=== PATIENT | female | born 1940 ===

== ENCOUNTER 2016-07-05 06:01 | Observation (INO) | payer MEDICARE ==
[2016-06-27 12:25] VITALS: BMI 30.4
[2016-07-05] MEDS ORDERED: Lactated Ringer's 1,000 ML IV ONE (07:20)
[2016-07-05] MEDS ORDERED: Lidocaine 1% Inj (20ml) ONE (07:27)
[2016-07-05] MEDS ORDERED: Lidocaine 2% w Epi 1:100,000 Inj IJ ONE (07:27)
[2016-07-05] MEDS ORDERED: Bupivacaine 0.5% Inj(30mL) ONE (07:27)
[2016-07-05] MEDS ORDERED: Albuterol HFA 90 mcg/actuation (8 g) ONE ×4 (07:43→07:46)
[2016-07-05] MEDS ORDERED: Propofol 10 mg/ml Inj (20 ML) ONE (07:46)
[2016-07-05] MEDS ORDERED: Midazolam 2 MG/2 ML VIAL ONE (07:48)
[2016-07-05] MEDS ORDERED: ePHEDrine 50 mg/ml Inj ONE (08:06)
[2016-07-05] MEDS ORDERED: Phenylephrine 10 mg/ml Inj ONE (08:07)
--- NOTE | 2016-07-05 08:55 | PCM.SURG1 ---
Surgeon's Initial Post Op Note - Surgeon's Notes Surgeon: Dr. Romo Hr Shared Services Consultant: Dr. Sprague PGY-1 Type of Anesthesia: General LMA Pre-Operative Diagnosis: Left Breast Mass Operative Findings: See Operative Note Post-Operative Diagnosis: Left Breast Mass Operation Performed: Left breast lumpectomy with axillary dissection Specimen/Specimens Removed: Left brest lump, with axillary content including lymphnodes Estimated Blood Loss: EBL {In ML}: 2 Blood Products Given: N/A Drains Used: [place] Date of Surgery/Procedure: 07/05/16 Time of Surgery/Procedure: 08:55
[2016-07-05] MEDS ORDERED: HYDROmorphone 0.5 mg/0.5 ml ISec IVP PRN ×2 (08:57→09:31)
[2016-07-05] MEDS ORDERED: Patient's Own Med (Metformin Er [Glucophage Xr] 750 mg) PO SCH (09:00)
[2016-07-05] MEDS ORDERED: Pantoprazole 40 mg EC Tab PO SCH (09:00)
[2016-07-05] MEDS ORDERED: Levothyroxine 112 MCG TAB PO SCH (09:00)
[2016-07-05] MEDS ORDERED: Albuterol HFA 90 mcg/actuation (8 g) IH PRN (09:00)
--- NOTE | 2016-07-05 11:32 | OP ---
PROCEDURE DATE: 07/05/2016 PREOPERATIVE DIAGNOSIS: Infiltrating ductal carcinoma of the left breast. POSTOPERATIVE DIAGNOSIS: Infiltrating ductal carcinoma of the left breast. PROCEDURE: Left lumpectomy with axillary dissection. SURGEON: Vasu Romo MD. STATIONARY ENGINEER: ____. ANESTHESIA: General LMA, Dr. Anglin. INDICATIONS: This is a 76-year-old female admitted for a lumpectomy and axillary dissection. She gilmore d an ultrasound-guided core biopsy, which showed infiltrating ductal carcinoma. The tumor is approxi mately 2 cm, but it is extremely close to the axilla at the tail the breast. So I decided an axilla ry dissection would be the way to go and not a sentinel node because of the closeness to the axilla. DESCRIPTION OF PROCEDURE: After obtaining informed consent, the patient was taken to the operating r oom. After a timeout obtained and induction of general LMA anesthesia, the left breast was prepped a nd draped in the usual manner. A semicircular incision was made over the breast nodule. This was to encompass the biopsy site at the skin as well. This incision was approximately 10 cm long x about 3 cm wide. At this point, undermining using hemocautery was done at the subcutaneous level, undermini ng approximately 3-4 cm all around - this way deepening the incision medially all the way down to the pectoralis fascia, as well as superiorly and inferiorly. Laterally was detached until getting just to the axillary contents. The axilla was then entered using hemocautery, and careful dissection was done using a right angle bl unt and sharp dissection, clipping each visualized lymph channels and small tributaries. The axillar y vein with seen superiorly. There were some palpable nodes, especially one at the apex. Again, thi s was carefully dissected, doubly clipped and divided. The axillary contents were removed in contigu ity with the lumpectomy, and the apex of the axilla was marked with a 2-0 silk. At this point, silvia g sure that hemostasis was excellent, a half-inch F[place] drain was placed in the cavity. The subcut aneous tissue was approximated using fine Vicryl, the skin with silvia. A dressing was applied. The estimated blood loss was approximately 5 mL. The patient tolerated the procedure very well and was transferred to recovery room in [facility]. Vasu Romo MD cc: 72 TT: 07/05/2016 11:31:57 jn
[2016-07-05] MEDS: Fluticasone-Salmeterol 250-50mcg Diskus IH SCH ×2 (16:37→17:42)
[2016-07-05] MEDS: Omega-3-Acid Ethyl Esters 1 GM Cap PO SCH ×2 (16:41→19:35)
[2016-07-05 22:49] VITALS: BP 136/73; PULSE 91; RESP 18; TEMP 99; O2SAT 96
== END 2016-07-06 19:25 | disposition home or self-care (01) ==
LOC: H.OPSURG 06:01 → H.MEDSURG1 08:56 → INTOOBSV 08:56
PROVIDERS: ADMIT Surgery; ATTEND Surgery
DX: C50.912 Malignant neoplasm of unspecified site of left female breast (principal); I10 Essential (primary) hypertension; E78.5 Hyperlipidemia, unspecified; E03.9 Hypothyroidism, unspecified
CPT/HCPCS: 19302; 82948; 88305; G0378; J0690; J1170; J2250; J2370; J2704; J3010; J7120

== ENCOUNTER 2017-04-06 11:02 | Observation (INO) | payer MEDICARE ==
[2017-04-06 12:09] LABS: BASO # 0.2 K/uL (0.0-0.2); BASO % 1.4 % (0.0-2.0); EOS # 0.1 K/uL (0.0-0.7); EOS % 0.5 % (0.0-4.0); HEMOGLOBIN 11.5 g/dL (12.0-16.0); LYMPH # 1.7 K/uL (1.0-4.3); LYMPH % 12.4 % (20.0-40.0); MEAN CORPUSCULAR HEMOGLOBIN 27.7 pg (27.0-31.0); MEAN CORPUSCULAR HGB CONC 32.8 g/dL (33.0-37.0); MEAN PLATELET VOLUME 10.6 fl (7.2-11.7); MONO # 1.6 K/uL (0.0-0.8); MONO % 11.8 % (0.0-10.0); NEUT % 73.9 % (50.0-75.0); RBC 4.14 Mil/uL (3.80-5.20); WHITE BLOOD COUNT 13.5 K/uL (4.8-10.8)
[2017-04-06 12:13] LABS: MEAN CELL VOLUME 84.4 fl (81.0-99.0)
--- NOTE | 2017-04-06 12:18 | RAD ---
PROCEDURE: CHEST RADIOGRAPH, 1 VIEW HISTORY: dyspnea COMPARISON: Chest radiograph dated 06/27/2016. FINDINGS: LUNGS: Clear. PLEURA: No pneumothorax or pleural fluid seen. CARDIOVASCULAR: Atherosclerotic aortic calcifications. Cardiomediastinal silhouette stably enlarged. OSSEOUS STRUCTURES: Unchanged. VISUALIZED UPPER ABDOMEN: Normal. OTHER FINDINGS: Left axillary surgical clips. IMPRESSION: No active disease.
[2017-04-06 12:23] LABS: BLOOD UREA NITROGEN 27 mg/dl (7-17); CALCIUM 9.4 mg/dL (8.4-10.2); GFR AFRICAN-AMERICAN > 60; GFR NON-AFRICAN AMERICAN 54
[2017-04-06 12:34] LABS: B-TYPE NATRIURETIC PEPTIDE 443 pg/ml (0-900)
--- NOTE | 2017-04-06 12:41 | ED PDOC ---
HPI: General Adult Time Seen by Provider: 04/06/17 11:23 Chief Complaint (Nursing): Shortness Of Breath History Per: Patient Onset/Duration Of Symptoms: Days (10x), Intermittent Episodes Additional Complaint(s): Su Rubio, a 77 year old female with a past medical history hypertension, diabetes, hypothyroidism, and asthma presents to the ED complaining of cough, difficulty breathing, body ache, and fever onset ten days ago. Reports she has chest pain with cough. Patient visited her doctor three days ago and took antibiotics and other medication today. Denies abdominal pain, diarrhea, or vomiting. PMD: Dr. Chau Past Medical History Reviewed: Historical Data, Nursing Documentation, Vital Signs Vital Signs: Last Vital Signs Temp 97.7 F 04/07/17 08:47 Pulse 94 H 04/07/17 09:09 Resp 18 04/07/17 08:47 BP 150/69 04/07/17 09:09 Pulse Ox 95 04/07/17 08:47 - Medical History PMH: Arthritis, Asthma, Bronchitis (2016), HTN, Hypercholesterolemia, Hypothyroidism Denies: Chronic Kidney Disease - Surgical History Surgical History: Cholecystectomy - Family History Family History: States: Unknown Family Hx - Home Medications Home Medications: Ambulatory Orders Medication Instructions Recorded Folic Acid 1 mg PO DAILY 07/05/16 Levothyroxine [Synthroid] 112 mcg PO DAILY 07/05/16 Pantoprazole [Protonix EC Tab] 40 mg PO DAILY 07/05/16 Pregabalin [Lyrica] 75 mg PO HS 07/05/16 Albuterol 0.083% [Albuterol 0.083% 3 ml IH Q6H PRN 04/06/17 Inhal Poly (2.5 mg/3 ml) UD] Azithromycin [Z-Urbano] 250 mg PO ASDIR 04/06/17 Exemestane [Aromasin] 25 mg PO QPM 04/06/17 Glimepiride [amaRYL] 2 mg PO BID 04/06/17 Losartan/Hydrochlorothiazide 1 tab PO DAILY 04/06/17 [Losartan-Hctz 100-25 mg Tab] Mometasone Furoate [Nasonex] 2 spray NICOLE DAILY PRN 04/06/17 Montelukast [Singulair] 10 mg PO HS 04/06/17 Multivitamin [Daily Pascual] 1 tab PO DAILY 04/06/17 [id number] Ethyl Esters 1 GM 2 gm PO BID 04/06/17 [Lovaza] Promethazine/Codeine 5 ml PO Q6H PRN 04/06/17 [Phenergan/Codeine Oral Syrup] SITagliptin [Januvia] 50 mg PO DAILY 04/06/17 Zolpidem [Ambien] 10 mg PO HS 04/06/17 Fluticasone/Salmeterol [Advair 1 puff IH Q12H #1 blst.w.dev 04/07/17 250-50 Diskus] - Allergies Allergies/Adverse Reactions: Allergies Allergy/AdvReac Type Severity Reaction Status Date / Time cat dander Allergy CONGESTION Verified 07/05/16 06:40 chloroxine Allergy CONGESTION Verified 07/05/16 06:40 dog dander Allergy CONGESTION Verified 07/05/16 06:40 dust Allergy CONGESTION Uncoded 07/05/16 06:40 Review of Systems ROS Statement: Except As Marked, All Systems Reviewed And Found Negative Constitutional: Positive for: Fever, Other (body ache) Cardiovascular: Positive for: Chest Pain (with cough ) Respiratory: Positive for: Cough, Other (difficulty breathing) Gastrointestinal: Negative for: Vomiting, Abdominal Pain, Diarrhea Physical Exam - Reviewed Nursing Documentation Reviewed: Yes Vital Signs Reviewed: Yes - Physical Exam Appears: Positive for: Well, Non-toxic, No Acute Distress Head Exam: Positive for: ATRAUMATIC, NORMAL INSPECTION, NORMOCEPHALIC Skin: Positive for: Normal Color, Warm, Dry Eye Exam: Positive for: EOMI, Normal appearance, PERRL ENT: Positive for: Normal ENT Inspection Neck: Positive for: Normal, Painless ROM, Supple. Negative for: Decreased ROM Cardiovascular/Chest: Positive for: Regular Rate, Rhythm. Negative for: Murmur , Bradycardia Respiratory: Positive for: Normal Breath Sounds. Negative for: Accessory Muscle Use, Wheezing, Respiratory Distress Gastrointestinal/Abdominal: Positive for: Normal Exam, Bowel Sounds, Soft. Negative for: Tenderness, Guarding Back: Positive for: Normal Inspection. Negative for: L CVA Tenderness, R CVA Tenderness Extremity: Positive for: Normal ROM. Negative for: Tenderness, Pedal Edema, Deformity Neurologic/Psych: Positive for: Alert, Oriented (x3), Gait - Laboratory Results Result Diagrams: 04/07/17 05:30 02/17/18 05:30 - ECG O2 Sat by Pulse Oximetry: 98 (RA) Pulse Ox Interpretation: Normal Medical Decision Making Medical Decision Making: Time: 11:40 Initial Impression: Upper respiratory tract infection and Difficulty breathing Differential Diagnosis includes but is not limited to: Influenza associated with asthma exacerbation r/o pneumonia. Possible Upper respiratory tract infection, renal failure, and dehydration Initial Plan: --EKG --B-type natriuretic peptide --BMP --Troponin I --Dipstick --CBC --Chest X-ray --Blood culture --Influenza A B --Reevaluation Time: 12:42 FINDINGS: LUNGS: Clear. PLEURA: No pneumothorax or pleural fluid seen. CARDIOVASCULAR: Atherosclerotic aortic calcifications. Cardiomediastinal silhouette stably enlarged. OSSEOUS STRUCTURES: Unchanged. VISUALIZED UPPER ABDOMEN: Normal. OTHER FINDINGS: Left axillary surgical clips. IMPRESSION: No active disease. Documented by Malissa Leone acting as a scribe for Ivana Maharaj MD. All medical record entries made by the Scribe were at my direction and personally dictated by me. I have reviewed the chart and agree that the record accurately reflects my personal performance of the history, physical exam, medical decision making, and the department course for this patient. I have also personally directed, reviewed, and agree with the discharge instructions and disposition. Disposition - Clinical Impression Clinical Impression: COPD exacerbation - Patient ED Disposition Is Patient to be Admitted: Yes Discussed With : Stanley Baron Doctor Will See Patient In The: ED Counseled Patient/Family Regarding: Studies Performed, Diagnosis - Disposition Disposition Time: 14:20 Condition: FAIR - Pt Status Changed To: Hospital Disposition Of: Observation - POA Present On Arrival: None
[2017-04-06] MEDS ORDERED: Albuterol-Ipratrop 3 mg / 0.5 (3 ml) UD INH STA (14:18)
--- NOTE | 2017-04-06 15:14 | CP.PCM.HP ---
History of Present Illness - History of Present Illness History of Present Illness: 77 yo female with history of COPD, DM2, HTN, Hypothyroidism and Breast Cancer ( left lumpectomy plus radiation therapy last year) came in because of persistent coughing accompanied with SOB and wheezing since 10 days ago. Associated symptoms were chest pain from coughing, body ache and fever. Saw Dr Hui 3 days ago and was started on Azithromycin plus resumption of her bronchodilators but afforded no relief. Saw PCP again today and was advised to seek consultation in the ER. Denied nausea, vomiting or diarrhea. Present on Admission - Present on Admission Any Indicators Present on Admission: No History of DVT/PE: No History of Uncontrolled Diabetes: No Urinary Catheter: No Decubitus Ulcer Present: No Review of Systems - Review of Systems All systems: reviewed and no additional remarkable complaints except (aside from those mentioned above, 12 point system review were negative by me) Past Patient History - Tetanus Immunizations Tetanus Immunization: Unknown - Past Medical History & Family History Past Medical History?: Yes - Past Social History Smoking Status: Never Smoked ( was a heavy smoker) Alcohol: None Drugs: Denies Home Situation {Lives}: With Family - CARDIAC Hx Cardia Arrhythmia: Yes Hx Hypercholesterolemia: Yes Hx Hypertension: Yes - PULMONARY Hx Asthma: Yes Hx Bronchitis: Yes (2015) Hx Chronic Obstructive Pulmonary Disease (COPD): Yes - NEUROLOGICAL Hx Neurological Disorder: No - HEENT Hx HEENT Problems: Yes 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) Hx Cataracts: Yes - RENAL Hx Chronic Kidney Disease: No - ENDOCRINE/METABOLIC Hx Diabetes Mellitus Type 2: Yes Hx Hypothyroidism: Yes - HEMATOLOGICAL/ONCOLOGICAL Hx Blood Disorders: Yes Hx Bruising: Yes Hx Cancer: Yes (left breast cancer) - INTEGUMENTARY Hx Dermatological Problems: No - MUSCULOSKELETAL/RHEUMATOLOGICAL Hx Arthritis: Yes - GASTROINTESTINAL Hx Gastrointestinal Disorders: Yes Hx Bowel Surgery: Yes (Colectomy because of perforation, 1988) Hx Gastroesophageal Reflux: Yes (GERD) - GENITOURINARY/GYNECOLOGICAL Hx Genitourinary Disorders: No - PSYCHIATRIC Hx Psychophysiologic Disorder: No Hx Substance Use: No - SURGICAL HISTORY Hx Cholecystectomy: Yes Hx Hysterectomy: Yes Other/Comment: cataract surgery, left lumpectomy, colectomy, arthroscopy of left knee - ANESTHESIA Hx Anesthesia: Yes Hx Anesthesia Reactions: No Hx Malignant Hyperthermia: No Meds Allergies/Adverse Reactions: Allergies Allergy/AdvReac Type Severity Reaction Status Date / Time cat dander Allergy CONGESTION Verified 07/05/16 06:40 chloroxine Allergy CONGESTION Verified 07/05/16 06:40 dog dander Allergy CONGESTION Verified 07/05/16 06:40 dust Allergy CONGESTION Uncoded 07/05/16 06:40 Physical Exam - Constitutional Appears: No Acute Distress - Head Exam Head Exam: ATRAUMATIC - Eye Exam Eye Exam: absent: Normal appearance, PERRL (left eye prosthesis), Scleral icterus - ENT Exam ENT Exam: Mucous Membranes Moist - Neck Exam Neck exam: Negative for: Meningismus - Respiratory Exam Respiratory Exam: Wheezes. absent: Rhonchi - Cardiovascular Exam Cardiovascular Exam: REGULAR RHYTHM, +S1, +S2 - GI/Abdominal Exam GI & Abdominal Exam: Soft. absent: Tenderness - Rectal Exam Rectal Exam: Deferred - Back Exam Back exam: absent: tenderness - Neurological Exam Neurological exam: Alert, Oriented x3 - Psychiatric Exam Psychiatric exam: Normal Affect - Skin Skin Exam: Dry, Intact Results - Vital Signs Recent Vital Signs: Last Vital Signs Temp 98.4 F 04/06/17 11:14 Pulse 93 H 04/06/17 11:14 Resp 19 04/06/17 11:58 BP 176/73 H 04/06/17 11:14 Pulse Ox 98 04/06/17 12:45 - Labs Result Diagrams: 04/06/17 11:00 04/06/17 11:00 Labs: Laboratory Results - last 24 hr 04/06/17 04/06/17 04/06/17 11:00 11:00 11:00 WBC 13.5 H RBC 4.14 Hgb 11.5 L Hct 34.9 MCV 84.4 D MCH 27.7 MCHC 32.8 L RDW 15.0 H Plt Count 301 MPV 10.6 Neut % (Auto) 73.9 Lymph % (Auto) 12.4 L Roberts % (Auto) 11.8 H Eos % (Auto) 0.5 Baso % (Auto) 1.4 Neut # (Auto) 10.0 H Lymph # (Auto) 1.7 Roberts # (Auto) 1.6 H Eos # (Auto) 0.1 Baso # (Auto) 0.2 Sodium 141 Potassium 4.2 Chloride 105 Carbon Dioxide 22 Anion Gap 18 BUN 27 H Creatinine 1.0 Est GFR ( Amer) > 60 Est GFR (Non-Af Amer) 54 Random Glucose 142 H Calcium 9.4 Troponin I < 0.0120 NT-Pro-B Natriuret Pep 443 Influenza Typ A,B (EIA) Negative for flu a/b Assessment & Plan - Assessment and Plan (Free Text) Assessment: 77 yo female with history of COPD, DM2, HTN, Hypothyroidism and Breast Cancer ( left lumpectomy plus radiation therapy last year) came in because of persistent coughing accompanied with SOB and wheezing not responding to Azithromycin, inhaled steroid and bronchodilator. 1. COPD Exacerbation start with IV SoluMedrol 60mg q8hrs Duoneb q 4hrs prn for SOB and wheezing Advair 2 puffs q 12hrs [id number] PO HS Levaquin 500mg IV daily 2. DM2 BS controlled Glimepiride 2mg PO BID Januvia 50mg PO daily diabetic diet HgA1C, BMP in am 3. HTN BP stable on Losartan/HCTZ PO daily 4. Hypothyroid Levothyroxine 112mcg PO daily TSH in am 5. Breast Cancer continue Aromasin 25mg PO q PM
[2017-04-06] MEDS ORDERED: Albuterol-Ipratrop 3 mg / 0.5 (3 ml) UD ONE (15:23)
[2017-04-06] MEDS ORDERED: Promethazine/Cod 6.25mg-10mg/5ml Syr UD PO PRN (15:52)
[2017-04-06] MEDS ORDERED: methylPREDNISolone 60 MG in Sodium Chloride 0.9% 50 ML IV SCH (17:00)
[2017-04-06] MEDS: Fluticasone-Salmeterol 250-50mcg Diskus IH SCH (17:38)
[2017-04-06] MEDS: GlipiZIDE 5 mg SR Tab PO SCH (17:39)
[2017-04-06] MEDS: Sodium Chloride 0.9% 1,000 ML IV SCH (17:43)
--- NOTE | 2017-04-06 18:56 | CARD ---
APPROVED REPORT EKG Measurement Heart [id number] <Conclusion> Sinus rhythm with 1st degree AV block Left axis deviation Left ventricular hypertrophy with repolarization abnormality Abnormal ECG
[2017-04-06] MEDS: Omega-3-Acid Ethyl Esters 1 GM Cap PO SCH (21:37)
[2017-04-06] MEDS: Albuterol-Ipratrop 3 mg / 0.5 (3 ml) UD INH PRN (21:56)
[2017-04-07] MEDS: Insulin Lispro (humaLOG) 100 Units/ml Inj SC SCH ×3 (00:54→12:48)
[2017-04-07] MEDS ORDERED: methylPREDNISolone 60 MG in Sodium Chloride 0.9% 50 ML IV SCH (01:00)
[2017-04-07] MEDS: Fluticasone-Salmeterol 250-50mcg Diskus IH SCH (05:00)
[2017-04-07] MEDS: Albuterol-Ipratrop 3 mg / 0.5 (3 ml) UD INH PRN (05:05)
[2017-04-07] MEDS: Sodium Chloride 0.9% 1,000 ML IV SCH (05:06)
[2017-04-07 07:21] LABS: BASO % 0.3 % (0.0-2.0); HEMOGLOBIN 10.8 g/dL (12.0-16.0); LYMPH # 0.9 K/uL (1.0-4.3); MEAN CORPUSCULAR HEMOGLOBIN 27.7 pg (27.0-31.0); MEAN CORPUSCULAR HGB CONC 32.6 g/dL (33.0-37.0); MEAN PLATELET VOLUME 10.8 fl (7.2-11.7); MONO # 0.6 K/uL (0.0-0.8); MONO % 5.1 % (0.0-10.0); NEUT # 10.1 K/uL (1.8-7.0); NEUT % 86.6 % (50.0-75.0); PLATELET COUNT 307 K/uL (130-400); RBC 3.89 Mil/uL (3.80-5.20); RED CELL DISTRIBUTION WIDTH 15.4 % (11.5-14.5); WHITE BLOOD COUNT 11.7 K/uL (4.8-10.8)
[2017-04-07] MEDS ORDERED: Levothyroxine 112 MCG TAB PO SCH (07:30)
[2017-04-07 08:04] LABS: CALCIUM 8.6 mg/dL (8.4-10.2)
[2017-04-07] MEDS ORDERED: Azithromycin 500 MG in Sodium Chloride 0.9% 250 ML IVPB SCH (09:00)
[2017-04-07] MEDS ORDERED: Multivitamin With Minerals Tab PO SCH (09:00)
[2017-04-07] MEDS ORDERED: Pantoprazole 40 mg EC Tab PO SCH (09:00)
[2017-04-07] MEDS ORDERED: Patient's Own Med (Losartan/Hydrochlorothiazide [Losartan-Hctz 100-25 Mg Tab] 1 TAB) PO SCH (09:00)
[2017-04-07] MEDS ORDERED: Enoxaparin 40 mg Syringe SC SCH (09:00)
[2017-04-07 09:08] VITALS: RESP 18; TEMP 97.7
[2017-04-07] MEDS: Omega-3-Acid Ethyl Esters 1 GM Cap PO SCH (09:08)
[2017-04-07] MEDS: GlipiZIDE 5 mg SR Tab PO SCH (09:09)
[2017-04-07 09:14] VITALS: BP 150/69; PULSE 94
--- NOTE | 2017-04-07 11:00 | CP.PCM.DIS ---
Provider - Provider Date of Admission: 04/06/17 14:27 Attending physician: Stanley Baron MD Time Spent in preparation of Discharge (in minutes): 25 Diagnosis - Discharge Diagnosis (1) COPD exacerbation Status: Acute Comment: continue Azithromycin PO until consumed. resumed Montelukast and Advair (2) DM2 (diabetes mellitus, type 2) Status: Chronic Comment: BS uncontrolled because of IV steroid. continue Amaryl and Januvia (3) HTN (hypertension) Status: Chronic Comment: BP stable. continue Losartan/HCTZ (4) Hypothyroid Status: Chronic Comment: continue Synthroid 112mcg PO daily (5) Breast cancer Status: Acute Comment: continue Aromasin 25mg PO q PM Hospital Course - Lab Results Lab Results: Most Recent Lab Values WBC 11.7 K/uL (4.8-10.8) H 04/07/17 05:30 RBC 3.89 Mil/uL (3.80-5.20) 04/07/17 05:30 Hgb 10.8 g/dL (12.0-16.0) L 04/07/17 05:30 Hct 33.1 % (34.0-47.0) L 04/07/17 05:30 MCV 85.0 fl (81.0-99.0) 04/07/17 05:30 MCH 27.7 pg (27.0-31.0) 04/07/17 05:30 MCHC 32.6 g/dL (33.0-37.0) L 04/07/17 05:30 RDW 15.4 % (11.5-14.5) H 04/07/17 05:30 Plt Count 307 K/uL (130-400) 04/07/17 05:30 MPV 10.8 fl (7.2-11.7) 04/07/17 05:30 Neut % (Auto) 86.6 % (50.0-75.0) H 04/07/17 05:30 Lymph % (Auto) 8.0 % (20.0-40.0) L 04/07/17 05:30 [place] % (Auto) 5.1 % (0.0-10.0) 04/07/17 05:30 Eos % (Auto) 0.0 % (0.0-4.0) 04/07/17 05:30 Baso % (Auto) 0.3 % (0.0-2.0) 04/07/17 05:30 Neut # (Auto) 10.1 K/uL (1.8-7.0) H 04/07/17 05:30 Lymph # (Auto) 0.9 K/uL (1.0-4.3) L 04/07/17 05:30 [place] # (Auto) 0.6 K/uL (0.0-0.8) 04/07/17 05:30 Eos # (Auto) 0.0 K/uL (0.0-0.7) 04/07/17 05:30 Baso # (Auto) 0.0 K/uL (0.0-0.2) 04/07/17 05:30 Sodium 141 mmol/l (132-148) 04/07/17 05:30 Potassium 4.1 MMOL/L (3.6-5.0) 04/07/17 05:30 Chloride 104 mmol/L (98-107) 04/07/17 05:30 Carbon Dioxide 21 mmol/L (22-30) L 04/07/17 05:30 Anion Gap 20 (10-20) 04/07/17 05:30 BUN 27 mg/dl (7-17) H 04/07/17 05:30 Creatinine 1.2 mg/dl (0.7-1.2) 04/07/17 05:30 Est GFR ( Amer) 53 04/07/17 05:30 Est GFR (Non-Af Amer) 43 04/07/17 05:30 POC Glucose (mg/dL) 358 mg/dL (65-110) H 04/07/17 05:17 Random Glucose 480 mg/dL (65-105) H* D 04/07/17 05:30 Calcium 8.6 mg/dL (8.4-10.2) 04/07/17 05:30 Troponin I < 0.0120 ng/mL (0.00-0.120) 04/06/17 11:00 NT-Pro-B Natriuret Pep 443 pg/ml (0-900) 04/06/17 11:00 Influenza Typ A,B (EIA) Negative for flu a/b (NEGATIVE) 04/06/17 15:30 - Hospital Course Hospital Course: 77 yo female with history of COPD, DM2, HTN, Hypothyroidism and Breast Cancer ( left lumpectomy plus radiation therapy last year) came in because of persistent coughing accompanied with SOB and wheezing since 10 days ago. Associated symptoms were chest pain from coughing, body ache and fever. Patient was put on observation and started on IV Azithromycin and resumed all her home medications. She did well and admitted feeling much better the next day. Patient was discharged in stable and would continue her oral Azithromycin until consumed as well as all her home medications. She will follow up with her PCP in 2 weeks. Discharge Exam - Head Exam Head Exam: ATRAUMATIC - Eye Exam Eye Exam: absent: Scleral icterus - ENT Exam ENT Exam: Mucous Membranes Moist - Respiratory Exam Respiratory Exam: absent: Rhonchi, Wheezes, Respiratory Distress - Cardiovascular Exam Cardiovascular Exam: REGULAR RHYTHM, +S1, +S2 - GI/Abdominal Exam GI & Abdominal Exam: Soft. absent: Tenderness - Rectal Exam Rectal Exam: Deferred - Neurological Exam Neurological exam: Alert, Oriented x3 - Psychiatric Exam Psychiatric exam: Normal Affect - Skin Skin Exam: Dry, Intact Discharge Plan - Discharge Medications Prescriptions: Fluticasone/Salmeterol [Advair 250-50 Diskus] 1 puff IH Q12H #1 blst.w.dev - Follow Up Plan Condition: STABLE Disposition: HOME/ ROUTINE
[2017-04-07 12:45] LABS: ANISOCYTOSIS SLIGHT; BURR CELLS SLIGHT; HYPOCHROMIC SLIGHT; LYMPHOCYTE 10 % (20-50); MONOCYTE 5 % (0-10); NEUTROPHIL 85 % (42-75); PLATELET ESTIMATE NORMAL (NORMAL); TOTAL CELLS COUNTED 100
[2017-04-07 12:46] LABS: LARGE PLATELETS PRESENT
[2017-04-09 12:58] VITALS: O2SAT 98
== END 2017-04-07 13:36 | disposition home or self-care (01) ==
LOC: H.ER 11:02 → INTOOBSV 14:27 → H.ERHOLD 14:27 → H.MEDSURG1 16:15
DX: J44.1 Chronic obstructive pulmonary disease with (acute) exacerbation (principal); J06.9 Acute upper respiratory infection, unspecified; E03.9 Hypothyroidism, unspecified; E11.9 Type 2 diabetes mellitus without complications; I10 Essential (primary) hypertension; K21.9 Gastro-esophageal reflux disease without esophagitis; E78.00 Pure hypercholesterolemia, unspecified; H54.62 Unqualified visual loss, left eye, normal vision right eye; Z79.811 Long term (current) use of aromatase inhibitors; Z79.84 Long term (current) use of oral hypoglycemic drugs; Z85.3 Personal history of malignant neoplasm of breast; Z90.710 Acquired absence of both cervix and uterus; Z92.3 Personal history of irradiation
CPT/HCPCS: 36415; 71045; 80048; 82948; 83880; 84484; 85025; 87040; 87804; 93005; 94150; 94640; 96374; 99285; G0378; J1650; J2930; J7040

== ENCOUNTER 2017-04-12 22:42 | Emergency (ER) | payer MEDICARE ==
[2017-04-12 23:43] VITALS: PULSE 81; RESP 16; TEMP 98.1; O2SAT 99
[2017-04-13] MEDS ORDERED: Insulin Regular 100 units/ml IV ONE (01:04)
[2017-04-13] MEDS ORDERED: Labetalol 5 mg/ml Inj 20ML IVP STA (01:10)
[2017-04-13 01:26] LABS: BASO # 0.2 K/uL (0.0-0.2); BASO % 1.3 % (0.0-2.0); EOS # 0.1 K/uL (0.0-0.7); HEMOGLOBIN 10.9 g/dL (12.0-16.0); LYMPH # 2.6 K/uL (1.0-4.3); LYMPH % 19.4 % (20.0-40.0); MEAN CELL VOLUME 84.7 fl (81.0-99.0); MEAN CORPUSCULAR HEMOGLOBIN 28.2 pg (27.0-31.0); MEAN CORPUSCULAR HGB CONC 33.3 g/dL (33.0-37.0); MEAN PLATELET VOLUME 10.2 fl (7.2-11.7); MONO # 1.6 K/uL (0.0-0.8); MONO % 11.6 % (0.0-10.0); NEUT # 8.9 K/uL (1.8-7.0); NEUT % 66.7 % (50.0-75.0); RBC 3.86 Mil/uL (3.80-5.20); RED CELL DISTRIBUTION WIDTH 15.8 % (11.5-14.5); WHITE BLOOD COUNT 13.4 K/uL (4.8-10.8)
[2017-04-13 01:37] LABS: ALB/GLOB RATIO 1.2 (1.0-2.1); ALBUMIN 3.9 g/dL (3.5-5.0); CALCIUM 9.6 mg/dL (8.4-10.2)
[2017-04-13] MEDS ORDERED: Insulin Regular 100 units/ml ONE (01:48)
[2017-04-13 01:51] VITALS: BP 165/85
--- NOTE | 2017-04-13 03:15 | ED PDOC ---
Hyperglycemia/Hypoglycemia Time Seen by Provider: 04/13/17 00:25 Chief Complaint (Nursing): High Blood Sugar Chief Complaint (Provider): high blood sugar History Per: Patient History/Exam Limitations: no limitations Onset/Duration Of Symptoms: Days (1x) Associated Infectious Symptoms: denies: Nausea, Vomiting, Diarrhea : The patient does not have any of the infectious symptoms listed except for those marked. Additional Complaint(s): Su Rubio, a 77 y/o female with past medical history of HTN and diabetes presents to the ED complaining of high blood sugar with associated symptoms of dizziness. Reports patient was given prednisone by her PMD and diagnosed with asthma exacerbation. States medication caused her blood pressure to increase but her asthma improved. Denies chest pain, nausea, vomiting, diarrhea, or fever. Of note: Patient was recently admitted on 04/06/17 for asthma exacerbation. PMD: Bishop Hui Past Medical History Reviewed: Historical Data, Nursing Documentation, Vital Signs Vital Signs: Last Vital Signs Temp 98.1 F 04/12/17 23:39 Pulse 81 04/12/17 23:39 Resp 16 04/12/17 23:39 BP 165/85 H 04/13/17 01:51 Pulse Ox 99 04/12/17 23:39 - Medical History PMH: Arthritis, Asthma, Bronchitis (2016), Cardia Arrhythmia, COPD, HTN, Hypercholesterolemia, Hypothyroidism Denies: Chronic Kidney Disease - Surgical History Surgical History: Cholecystectomy Other surgeries: Left Breast Removal - Family History Family History: States: Unknown Family Hx - Social History Current smoker - smoking cessation education provided: No Alcohol: None Drugs: Denies - Home Medications Home Medications: Ambulatory Orders Medication Instructions Recorded Folic Acid 1 mg PO DAILY 07/05/16 Levothyroxine [Synthroid] 112 mcg PO DAILY 07/05/16 Pantoprazole [Protonix EC Tab] 40 mg PO DAILY 07/05/16 Pregabalin [Lyrica] 75 mg PO HS 07/05/16 Albuterol 0.083% [Albuterol 0.083% 3 ml IH Q6H PRN 04/06/17 Inhal Poly (2.5 mg/3 ml) UD] Azithromycin [Z-Urbano] 250 mg PO ASDIR 04/06/17 Exemestane [Aromasin] 25 mg PO QPM 04/06/17 Glimepiride [amaRYL] 2 mg PO BID 04/06/17 Losartan/Hydrochlorothiazide 1 tab PO DAILY 04/06/17 [Losartan-Hctz 100-25 mg Tab] Mometasone Furoate [Nasonex] 2 spray NICOLE DAILY PRN 04/06/17 Montelukast [Singulair] 10 mg PO HS 04/06/17 Multivitamin [Daily Pascual] 1 tab PO DAILY 04/06/17 [id number] Ethyl Esters 1 GM 2 gm PO BID 04/06/17 [Lovaza] Promethazine/Codeine 5 ml PO Q6H PRN 04/06/17 [Phenergan/Codeine Oral Syrup] SITagliptin [Januvia] 50 mg PO DAILY 04/06/17 Zolpidem [Ambien] 10 mg PO HS 04/06/17 Fluticasone/Salmeterol [Advair 1 puff IH Q12H #1 blst.w.dev 04/07/17 250-50 Diskus] - Allergies Allergies/Adverse Reactions: Allergies Allergy/AdvReac Type Severity Reaction Status Date / Time cat dander Allergy CONGESTION Verified 07/05/16 06:40 chloroxine Allergy CONGESTION Verified 07/05/16 06:40 dog dander Allergy CONGESTION Verified 07/05/16 06:40 dust Allergy CONGESTION Uncoded 07/05/16 06:40 Review of Systems ROS Statement: Except As Marked, All Systems Reviewed And Found Negative Constitutional: Positive for: Other (high blood sugar and high blood pressure). Negative for: Fever Cardiovascular: Negative for: Chest Pain Gastrointestinal: Negative for: Nausea, Vomiting, Diarrhea Neurological: Positive for: Dizziness Physical Exam - Reviewed Nursing Documentation Reviewed: Yes Vital Signs Reviewed: Yes - Physical Exam Appears: Positive for: Well, Non-toxic, No Acute Distress Head Exam: Positive for: ATRAUMATIC, NORMAL INSPECTION, NORMOCEPHALIC Skin: Positive for: Normal Color, Warm, Dry Eye Exam: Positive for: Other (left eye blindess) ENT: Positive for: Normal ENT Inspection Neck: Positive for: Normal, Painless ROM, Supple. Negative for: Decreased ROM Cardiovascular/Chest: Positive for: Regular Rate, Rhythm. Negative for: Murmur , Bradycardia Respiratory: Positive for: Normal Breath Sounds. Negative for: Decreased Breath Sounds, Accessory Muscle Use, Respiratory Distress Gastrointestinal/Abdominal: Positive for: Normal Exam, Bowel Sounds, Soft. Negative for: Tenderness, Guarding Back: Positive for: Normal Inspection. Negative for: L CVA Tenderness, R CVA Tenderness Extremity: Positive for: Normal ROM. Negative for: Tenderness, Pedal Edema, Deformity Neurologic/Psych: Positive for: Alert, Oriented (x3), Gait - Laboratory Results Result Diagrams: 04/13/17 01:23 04/13/17 01:23 - ECG O2 Sat by Pulse Oximetry: 99 (RA) Pulse Ox Interpretation: Normal Medical Decision Making Medical Decision Making: Time: 01:03 Initial Impression: 77 y/o female with hyperglycemia and hypertension Initial Plan: --EKG --CMP --CBC --HumuLIN R --Trandate 20mg --Glucose, Blood, POC --Urinalysis --Reevaluation Clinical Impression: Hyperglycemia with steroid Upon provider evaluation patient is medically stable, and requires no further treatment in the ED at this time. Patient's reports present improvement in symptoms and patient will be discharged. Counseling was provided and patient was advised to discontinue prednisone. All questions were answered regarding diagnosis and need for follow up with PMD. Documented by Malissa Leone acting as a scribe for Juan C Chaudhari MD. All medical record entries made by the Scribe were at my direction and personally dictated by me. I have reviewed the chart and agree that the record accurately reflects my personal performance of the history, physical exam, medical decision making, and the department course for this patient. I have also personally directed, reviewed, and agree with the discharge instructions and disposition. Disposition - Clinical Impression Clinical Impression: Hyperglycemia, drug-induced, HTN (hypertension) - Patient ED Disposition Is Patient to be Admitted: No - Disposition Referrals: Bishop Hui MD [Primary Care Provider] - Disposition: Routine/Home Disposition Time: 04:30 Condition: STABLE Instructions: Adverse Drug Reactions, Adult (DC) Forms: [facility] (Danish) Print Language: BULGARIAN
== END 2017-04-13 04:36 | disposition home or self-care (01) ==
LOC: H.ER 22:42
DX: E11.65 Type 2 diabetes mellitus with hyperglycemia (principal); I10 Essential (primary) hypertension; E03.9 Hypothyroidism, unspecified; E78.00 Pure hypercholesterolemia, unspecified; J44.9 Chronic obstructive pulmonary disease, unspecified; Z79.84 Long term (current) use of oral hypoglycemic drugs

== ENCOUNTER 2018-03-28 13:29 | Inpatient (IN) | payer MEDICARE, OTHER ==
[2018-03-28] MEDS ORDERED: Albuterol 0.083% Inhal Sol (2.5 mg/3 mL) UD INH ONE ×2 (15:47→18:46)
[2018-03-28] MEDS ORDERED: Albuterol 0.083% Inhal Sol (2.5 mg/3 mL) UD ONE ×2 (15:53→20:16)
--- NOTE | 2018-03-28 15:56 | ED PDOC ---
HPI: Influenza Time Seen by Provider: 03/28/18 14:40 Chief Complaint: Cough, Cold, Congestion Past Medical History Vital Signs: Last Vital Signs Temp 98.6 F 03/28/18 14:25 Pulse 122 H 03/28/18 14:25 Resp 18 03/28/18 14:25 BP 160/80 H 03/28/18 14:25 Pulse Ox 99 03/28/18 14:25 - Medical History PMH: Arthritis, Asthma, Bronchitis (2016), Cardia Arrhythmia, COPD, HTN, Hypercholesterolemia, Hypothyroidism Denies: Chronic Kidney Disease - Surgical History Surgical History: Cholecystectomy - Family History Family History: States: Unknown Family Hx - Home Medications Home Medications: Ambulatory Orders Medication Instructions Recorded Folic Acid 1 mg PO DAILY 07/05/16 Levothyroxine [Synthroid] 112 mcg PO DAILY 07/05/16 Pantoprazole [Protonix EC Tab] 40 mg PO DAILY 07/05/16 Pregabalin [Lyrica] 75 mg PO HS 07/05/16 Albuterol 0.083% [Albuterol 0.083% 3 ml IH Q6H PRN 04/06/17 Inhal Poly (2.5 mg/3 ml) UD] Azithromycin [Z-Urbano] 250 mg PO ASDIR 04/06/17 Exemestane [Aromasin] 25 mg PO QPM 04/06/17 Glimepiride [amaRYL] 2 mg PO BID 04/06/17 Losartan/Hydrochlorothiazide 1 tab PO DAILY 04/06/17 [Losartan-Hctz 100-25 mg Tab] Mometasone Furoate [Nasonex] 2 spray NICOLE DAILY PRN 04/06/17 Montelukast [Singulair] 10 mg PO HS 04/06/17 Multivitamin [Daily Pascual] 1 tab PO DAILY 04/06/17 [id number] Ethyl Esters 1 GM 2 gm PO BID 04/06/17 [Lovaza] Promethazine/Codeine 5 ml PO Q6H PRN 04/06/17 [Phenergan/Codeine Oral Syrup] SITagliptin [Januvia] 50 mg PO DAILY 04/06/17 Zolpidem [Ambien] 10 mg PO HS 04/06/17 Fluticasone/Salmeterol [Advair 1 puff IH Q12H #1 blst.w.dev 04/07/17 250-50 Diskus] - Allergies Allergies/Adverse Reactions: Allergies Allergy/AdvReac Type Severity Reaction Status Date / Time cat dander Allergy CONGESTION Verified 03/28/18 14:22 chloroxine Allergy CONGESTION Verified 03/28/18 14:22 dog dander Allergy CONGESTION Verified 03/28/18 14:22 dust Allergy CONGESTION Uncoded 03/28/18 14:22 - ECG O2 Sat by Pulse Oximetry: 99 Disposition - Disposition
--- NOTE | 2018-03-28 16:17 | ED PDOC ---
HPI: CCC, URI, Sore Throat Time Seen by Provider: 03/28/18 14:40 Chief Complaint (Nursing): Cough, Cold, Congestion Chief Complaint (Provider): Cough x 3 weeks History Per: Patient History/Exam Limitations: no limitations Have you had recent travel within the past 21 days to any of the following countries: [place], [place], [place] or [place]?: No Onset/Duration Of Symptoms: Persistent Current Symptoms Are (Timing): Still Present Associated Symptoms: Cough Additional Complaint(s): 77yo female with history of hypertension, diabetes, asthma, cancer, comes to ER for evaluation due to a persistent cough x 3 weeks. Patient has been evaluated by her PMD and given steroids, flonase, cough suppressants, which she has been taking with no relief. She reports a tactile fever, chest tightness and shortness of breath due to cough. No additional complaints. PMD: Dr. Hui Past Medical History Reviewed: Historical Data, Nursing Documentation, Vital Signs Vital Signs: Last Vital Signs Temp 98.6 F 03/28/18 14:25 Pulse 122 H 03/28/18 14:25 Resp 18 03/28/18 14:25 BP 160/80 H 03/28/18 14:25 Pulse Ox 99 03/28/18 14:25 - Medical History PMH: Arthritis, Asthma, Bronchitis (2016), Cardia Arrhythmia, COPD, HTN, Hypercholesterolemia, Hypothyroidism Denies: Chronic Kidney Disease - Surgical History Surgical History: Cholecystectomy Other surgeries: colon surgery, eye surgery, orthopedic surgeries - Family History Family History: States: No Known Family Hx - Home Medications Home Medications: Ambulatory Orders Medication Instructions Recorded RX: Folic Acid 1 mg PO DAILY 07/05/16 RX: Levothyroxine [Synthroid] 112 mcg PO DAILY 07/05/16 RX: Pantoprazole [Protonix EC Tab] 40 mg PO DAILY 07/05/16 RX: Pregabalin [Lyrica] 75 mg PO HS 07/05/16 RX: Albuterol 0.083% [Albuterol 3 ml IH Q6H PRN 04/06/17 0.083% Inhal Poly (2.5 mg/3 ml) UD] RX: Exemestane [Aromasin] 25 mg PO QPM 04/06/17 RX: Glimepiride [amaRYL] 2 mg PO BID 04/06/17 RX: Losartan/Hydrochlorothiazide 1 tab PO DAILY 04/06/17 [Losartan-Hctz 100-25 mg Tab] RX: Mometasone Furoate [Nasonex] 2 spray NICOLE DAILY PRN 04/06/17 RX: Montelukast [Singulair] 10 mg PO HS 04/06/17 RX: Multivitamin [Daily Pascual] 1 tab PO DAILY 04/06/17 RX: [id number] Ethyl Esters 1 GM 2 gm PO BID 04/06/17 [Lovaza] RX: Promethazine/Codeine 5 ml PO Q6H PRN 04/06/17 [Phenergan/Codeine Oral Syrup] RX: SITagliptin [Januvia] 50 mg PO DAILY 04/06/17 RX: Zolpidem [Ambien] 10 mg PO HS 04/06/17 RX: Fluticasone/Salmeterol [Advair 1 puff IH Q12H #1 blst.w.dev 04/07/17 250-50 Diskus] RX: Azithromycin 500 mg PO DAILY 5 Days #7 tablet 03/30/18 predniSONE [Prednisone] 20 mg PO DAILY 3 Days #3 tab 03/30/18 - Allergies Allergies/Adverse Reactions: Allergies Allergy/AdvReac Type Severity Reaction Status Date / Time cat dander Allergy CONGESTION Verified 03/28/18 14:22 chloroxine Allergy CONGESTION Verified 03/28/18 14:22 dog dander Allergy CONGESTION Verified 03/28/18 14:22 dust Allergy CONGESTION Uncoded 03/28/18 14:22 Review of Systems ROS Statement: Except As Marked, All Systems Reviewed And Found Negative Constitutional: Positive for: Fever Cardiovascular: Positive for: Other (chest tightness) Respiratory: Positive for: Cough Physical Exam - Reviewed Nursing Documentation Reviewed: Yes Vital Signs Reviewed: Yes - Physical Exam Appears: Positive for: Non-toxic (pt appears tachypneic) Head Exam: Positive for: ATRAUMATIC, NORMAL INSPECTION, NORMOCEPHALIC Skin: Positive for: Normal Color Eye Exam: Positive for: Normal appearance ENT: Positive for: Normal ENT Inspection Neck: Positive for: Supple Cardiovascular/Chest: Positive for: Tachycardia Respiratory: Positive for: Wheezing. Negative for: Respiratory Distress Gastrointestinal/Abdominal: Positive for: Normal Exam, Soft. Negative for: Tenderness Back: Positive for: Normal Inspection Extremity: Positive for: Normal ROM, Pedal Edema (1+ bilaterally) Neurologic/Psych: Positive for: Alert, Oriented. Negative for: Motor/Sensory Deficits - Laboratory Results Result Diagrams: 03/30/18 04:30 03/30/18 04:30 - ECG O2 Sat by Pulse Oximetry: 99 (RA) Pulse Ox Interpretation: Normal Medical Decision Making Medical Decision [place] female with persistent cough x 3 weeks Plan: -- Chest x-ray -- Albuterol 2.5mg INH -- Labs -- Rapid flu 1638 Chest x-ray FINDINGS: LUNGS: No active pulmonary disease. PLEURA: No significant pleural effusion identified. No pneumothorax apparent. CARDIOVASCULAR: Atherosclerotic calcifications identified primarily aortic arch. No radiographic findings to suggest acute or significant cardiovascular disease. OSSEOUS STRUCTURES: No significant abnormalities. VISUALIZED UPPER ABDOMEN: Normal. OTHER FINDINGS: None. IMPRESSION: No active disease. No significant interval change compared to the prior examination(s). 18:40 Upon reevaluation, patient states she feels slightly better but is still complaining of dyspnea. Dr. Baron called. 18:[address] Baron hospitalist. Will admit patient. Scribe Attestation: Documented by Sammi Prince acting as a scribe for Sandor Jade MD. Provider Attestation: All medical record entries made by the Scribe were at my direction and personally dictated by me. I have reviewed the chart and agree that the record accurately reflects my personal performance of the history, physical exam, medical decision making, and the department course for this patient. I have also personally directed, reviewed, and agree with the discharge instructions and disposition. Disposition - Clinical Impression Clinical Impression: COPD exacerbation - Patient ED Disposition Is Patient to be Admitted: Yes - Disposition Disposition Time: 18:45 Condition: STABLE
--- NOTE | 2018-03-28 16:33 | RAD ---
Date of service: 03/28/2018 HISTORY: ketan COMPARISON: 04/06/2017 TECHNIQUE: Chest PA and lateral FINDINGS: LUNGS: No active pulmonary disease. PLEURA: No significant pleural effusion identified. No pneumothorax apparent. CARDIOVASCULAR: Atherosclerotic calcifications identified primarily aortic arch. No radiographic findings to suggest acute or significant cardiovascular disease. OSSEOUS STRUCTURES: No significant abnormalities. VISUALIZED UPPER ABDOMEN: Normal. OTHER FINDINGS: None. IMPRESSION: No active disease. No significant interval change compared to the prior examination(s).
[2018-03-28 16:44] LABS: BASO # 0.2 K/uL (0.0-0.2); BASO % 1.3 % (0.0-2.0); EOS # 0.4 K/uL (0.0-0.7); HEMOGLOBIN 12.3 g/dL (12.0-16.0); LYMPH # 2.3 K/uL (1.0-4.3); LYMPH % 12.4 % (20.0-40.0); MEAN CELL VOLUME 87.9 fl (81.0-99.0); MEAN CORPUSCULAR HEMOGLOBIN 28.4 pg (27.0-31.0); MEAN CORPUSCULAR HGB CONC 32.4 g/dL (33.0-37.0); MEAN PLATELET VOLUME 10.9 fl (7.2-11.7); MONO # 1.3 K/uL (0.0-0.8); MONO % 6.9 % (0.0-10.0); NEUT # 14.5 K/uL (1.8-7.0); NEUT % 77.4 % (50.0-75.0); RBC 4.34 Mil/uL (3.80-5.20); RED CELL DISTRIBUTION WIDTH 14.9 % (11.5-14.5); WHITE BLOOD COUNT 18.8 K/uL (4.8-10.8)
[2018-03-28 16:56] LABS: ALB/GLOB RATIO 1.2 (1.0-2.1); ALT/SGPT 30 U/L (9-52); AST/SGOT 18 U/L (14-36); BLOOD UREA NITROGEN 22 mg/dl (7-17); CALCIUM 8.8 mg/dL (8.4-10.2); GFR NON-AFRICAN AMERICAN 54
[2018-03-28] MEDS ORDERED: Sodium Chloride 0.9% 1,000 ML IV STA (17:50)
[2018-03-28] MEDS ORDERED: Azithromycin 500 MG in Sodium Chloride 0.9% 250 ML IVPB STA (18:46)
[2018-03-28] MEDS ORDERED: Sodium Chloride 3% for Inhalation 4 ML VIAL.NEB IH PRN (19:24)
--- NOTE | 2018-03-28 19:33 | CP.PCM.HP ---
<Fley Jones - Last Filed: 03/28/18 21:55> History of Present Illness - History of Present Illness History of Present Illness: 77 yo female with history of COPD, DM2, HTN, asthma, hypothyroidism and Breast Cancer (left lumpectomy plus radiation therapy 2017), admitted due to clinical pneumonia. Patient came to ED due to evaluation of a persistent cough x 3 weeks; describes the cough as productive of yellow/white sputum sometimes. She stated she was evaluated by her PMD during this time and given steroids, flonase, and cough suppressants, which she has been taking with no relief. States that she has been coughing so much that her chest has started to hurt from it. PMD: Dr. Hui Med hx: COPD, HTN, DM2, breast ca, hypothyroidism Surg hx: left breast lumpectomy, cataract surg, L eye prosthesis, colectomy 1988, knee arthroscopy Social hx: denies tobacco, drug, alcohol use Family hx: noncontributory Med rec reviewed Allergies: cat dander, chloroxine, dog dander, dust; nkda In ED: Vitals: BP 160/80, HR 122, T 98.6, RR 18, O2 sat 99% on room air CBC: WBC 18 CMP: BUN 22, glucose 131, otherwise unremarkable proBNP 162 Influenza neg Blood culture collected CXR taken - no sign of acute disease Received: albuterol INH x2 500 mg azithromycin x1 1gm rocephin x1 1L NS bolus Present on Admission - Present on Admission Any Indicators Present on Admission: No Review of Systems - Review of Systems All systems: reviewed and no additional remarkable complaints except - Cardiovascular Cardiovascular: absent: Chest Pain - Respiratory Respiratory: Cough, Wheezing, Change in Mucous Color Past Patient History - Tetanus Immunizations Tetanus Immunization: Unknown - Past Medical History & Family History Past Medical History?: Yes - Past Social History Smoking Status: Never Smoked Alcohol: None Drugs: Denies - CARDIAC Hx Cardia Arrhythmia: Yes Hx Hypercholesterolemia: Yes Hx Hypertension: Yes - PULMONARY Hx Asthma: Yes Hx Bronchitis: Yes (2015) Hx Chronic Obstructive Pulmonary Disease (COPD): Yes - NEUROLOGICAL Hx Neurological Disorder: No - HEENT Hx HEENT Problems: Yes - RENAL Hx Chronic Kidney Disease: No - ENDOCRINE/METABOLIC Hx Hypothyroidism: Yes - HEMATOLOGICAL/ONCOLOGICAL Hx Blood Disorders: Yes - INTEGUMENTARY Hx Dermatological Problems: No - MUSCULOSKELETAL/RHEUMATOLOGICAL Hx Arthritis: Yes - GASTROINTESTINAL Hx Gastrointestinal Disorders: Yes Hx Bowel Surgery: Yes (Colectomy because of perforation, 1988) Hx Gastroesophageal Reflux: Yes (GERD) - GENITOURINARY/GYNECOLOGICAL Hx Genitourinary Disorders: No - PSYCHIATRIC Hx Psychophysiologic Disorder: No Hx Substance Use: No - SURGICAL HISTORY Hx Cholecystectomy: Yes - ANESTHESIA Hx Anesthesia: Yes Hx Anesthesia Reactions: No Hx Malignant Hyperthermia: No Meds Allergies/Adverse Reactions: Allergies Allergy/AdvReac Type Severity Reaction Status Date / Time cat dander Allergy CONGESTION Verified 03/28/18 14:22 chloroxine Allergy CONGESTION Verified 03/28/18 14:22 dog dander Allergy CONGESTION Verified 03/28/18 14:22 dust Allergy CONGESTION Uncoded 03/28/18 14:22 Physical Exam - Constitutional Additional comments: uncomfortable, coughing - Head Exam Head Exam: NORMAL INSPECTION, NORMOCEPHALIC - Eye Exam Eye Exam: Normal appearance Additional comments: prosthesis L eye - ENT Exam ENT Exam: Mucous Membranes Moist - Respiratory Exam Respiratory Exam: NORMAL BREATHING PATTERN. absent: Wheezes, Respiratory Distress Additional comments: + left sided crackles - Cardiovascular Exam Cardiovascular Exam: Tachycardia, +S1, +S2 - GI/Abdominal Exam GI & Abdominal Exam: Soft - Extremities Exam Extremities exam: Positive for: pedal edema (1+). Negative for: calf tenderness - Back Exam Back exam: NORMAL INSPECTION - Neurological Exam Neurological exam: Alert, Oriented x3 - Skin Skin Exam: Dry, Warm Results - Vital Signs Recent Vital Signs: Last Vital Signs Temp 98.6 F 03/28/18 14:25 Pulse 102 H 03/28/18 16:40 Resp 18 03/28/18 16:40 BP 160/80 H 03/28/18 14:25 Pulse Ox 99 03/28/18 18:55 - Labs Result Diagrams: 03/28/18 16:00 03/28/18 16:00 Labs: Laboratory Results - last 24 hr 03/28/18 03/28/18 03/28/18 16:00 16:00 16:00 WBC 18.8 H D RBC 4.34 Hgb 12.3 Hct 38.1 MCV 87.9 D MCH 28.4 MCHC 32.4 L RDW 14.9 H Plt Count 323 MPV 10.9 Neut % (Auto) 77.4 H Lymph % (Auto) 12.4 L [place] % (Auto) 6.9 Eos % (Auto) 2.0 Baso % (Auto) 1.3 Neut # (Auto) 14.5 H Lymph # (Auto) 2.3 [place] # (Auto) 1.3 H Eos # (Auto) 0.4 Baso # (Auto) 0.2 Sodium 137 Potassium 4.9 Chloride 101 Carbon Dioxide 22 Anion Gap 19 BUN 22 H Creatinine 1.0 Est GFR ( Amer) > 60 Est GFR (Non-Af Amer) 54 Random Glucose 131 H Calcium 8.8 Total Bilirubin 0.3 AST 18 ALT 30 Alkaline Phosphatase 123 Total Protein 7.3 Albumin 4.0 Globulin 3.3 Albumin/Globulin Ratio 1.2 Influenza Typ A,B (EIA) Negative for flu a/b Assessment & Plan - Assessment and Plan (Free Text) Assessment: 77 yo female with history of COPD, DM2, HTN, asthma, hypothyroidism, breast cancer (left lumpectomy plus radiation therapy 2017), admitted due to clinical pneumonia following persistent cough x 3 weeks. Plan: Cough, likely secondary to Community Acquired Pneumonia - Meets sepsis criteria; 2L bolus fluid - Continue azithromycin 500 mg daily (s/p 1 dose in ED) and rocephin 1 gm daily (1 dose in ED) - F/u blood, urine, sputum cultures - F/u mycoplasma, legionella antigens - Tessalon PO - CBC, BMP in am COPD/asthma - Solumedrol 125 mg IVP; 60 mg Q12 starting tomorrow - Duoneb Q4hrs HTN - Resume home meds losartan 100 mg daily, hctz 25mg daily, Diabetes Mellitus, type 2 - Resume home meds januvia, glipizide - Med dose insulin coverage scale and hypoglycemia protocol Hypothyroidism - Resume home med, levothyroxine 112 mcg daily Diet - Consistent carb/heart healthy DVT prophylaxis - Lovenox SC Case discussed w/ Dr. Baron. <Stanley Baron D - Last Filed: 03/29/18 09:52> Results - Vital Signs Recent Vital Signs: Last Vital Signs Temp 98.0 F 03/29/18 08:00 Pulse 82 03/29/18 08:00 Resp 18 03/29/18 08:00 BP 136/64 03/29/18 08:00 Pulse Ox 95 03/29/18 08:00 - Labs Result Diagrams: 03/29/18 04:20 03/29/18 04:20 Labs: Laboratory Results - last 24 hr 03/28/18 03/28/18 03/28/18 16:00 16:00 16:00 WBC 18.8 H D RBC 4.34 Hgb 12.3 Hct 38.1 MCV 87.9 D MCH 28.4 MCHC 32.4 L RDW 14.9 H Plt Count 323 MPV 10.9 Neut % (Auto) 77.4 H Lymph % (Auto) 12.4 L [place] % (Auto) 6.9 Eos % (Auto) 2.0 Baso % (Auto) 1.3 Neut # (Auto) 14.5 H Lymph # (Auto) 2.3 [place] # (Auto) 1.3 H Eos # (Auto) 0.4 Baso # (Auto) 0.2 pO2 VBG pH VBG pCO2 VBG HCO3 VBG Total CO2 VBG O2 Sat (Calc) VBG Base Excess Glucose Lactate FiO2 Crit Value Called To Crit Value Called By Crit Value Read Back Blood Gas Notified Time Sodium 137 Potassium 4.9 Chloride 101 Carbon Dioxide 22 Anion Gap 19 BUN 22 H Creatinine 1.0 Est GFR ( Amer) > 60 Est GFR (Non-Af Amer) 54 POC Glucose (mg/dL) Random Glucose 131 H Calcium 8.8 Total Bilirubin 0.3 AST 18 ALT 30 Alkaline Phosphatase 123 Troponin I NT-Pro-B Natriuret Pep Total Protein 7.3 Albumin 4.0 Globulin 3.3 Albumin/Globulin Ratio 1.2 Urine Color Urine Clarity Urine pH Ur Specific [place] Urine Protein Urine Glucose (UA) Urine Ketones Urine Blood Urine Nitrate Urine Bilirubin Urine Urobilinogen Ur Leukocyte Esterase Urine RBC (Auto) Urine Microscopic WBC Ur Squamous Epith Cells Urine Bacteria Hyaline Casts Influenza Typ A,B (EIA) Negative for flu a/b 03/28/18 03/28/18 03/28/18 20:30 20:41 22:33 WBC RBC Hgb Hct MCV MCH MCHC RDW Plt Count MPV Neut % (Auto) Lymph % (Auto) [place] % (Auto) Eos % (Auto) Baso % (Auto) Neut # (Auto) Lymph # (Auto) [place] # (Auto) Eos # (Auto) Baso # (Auto) pO2 72 H VBG pH 7.15 L* VBG pCO2 52 VBG HCO3 16.2 VBG Total CO2 19.7 L VBG O2 Sat (Calc) 95.4 H VBG Base Excess -10.9 L Glucose 269 H Lactate 4.8 H* FiO2 21.0 Crit Value Called To Dr nneka caruso Crit Value Called By 5 Crit Value Read Back Y Blood Gas Notified Time 2150 Sodium 121.0 L Potassium Chloride 104.0 Carbon Dioxide Anion Gap BUN Creatinine Est GFR ( Amer) Est GFR (Non-Af Amer) POC Glucose (mg/dL) 221 H Random Glucose Calcium Total Bilirubin AST ALT Alkaline Phosphatase Troponin I < 0.0120 NT-Pro-B Natriuret Pep 162 Total Protein Albumin Globulin Albumin/Globulin Ratio Urine Color Urine Clarity Urine pH Ur Specific [place] Urine Protein Urine Glucose (UA) Urine Ketones Urine Blood Urine Nitrate Urine Bilirubin Urine Urobilinogen Ur Leukocyte Esterase Urine RBC (Auto) Urine Microscopic WBC Ur Squamous Epith Cells Urine Bacteria Hyaline Casts Influenza Typ A,B (EIA) 03/28/18 03/29/18 03/29/18 23:30 04:20 04:20 WBC 12.0 H RBC 4.15 Hgb 12.0 Hct 36.4 MCV 87.8 MCH 28.8 MCHC 32.8 L RDW 15.0 H Plt Count 310 MPV 11.0 Neut % (Auto) 92.5 H Lymph % (Auto) 5.1 L [place] % (Auto) 1.7 Eos % (Auto) 0.0 Baso % (Auto) 0.7 Neut # (Auto) 11.1 H Lymph # (Auto) 0.6 L [place] # (Auto) 0.2 Eos # (Auto) 0.0 Baso # (Auto) 0.1 pO2 VBG pH VBG pCO2 VBG HCO3 VBG Total CO2 VBG O2 Sat (Calc) VBG Base Excess Glucose Lactate FiO2 Crit Value Called To Crit Value Called By Crit Value Read Back Blood Gas Notified Time Sodium 137 Potassium 4.5 Chloride 99 Carbon Dioxide 23 Anion Gap 20 BUN 22 H Creatinine 1.0 Est GFR ( Amer) > 60 Est GFR (Non-Af Amer) 54 POC Glucose (mg/dL) Random Glucose 349 H Calcium 8.9 Total Bilirubin AST ALT Alkaline Phosphatase Troponin I NT-Pro-B Natriuret Pep Total Protein Albumin Globulin Albumin/Globulin Ratio Urine Color Straw Urine Clarity Clear Urine pH 7.0 Ur Specific [place] 1.010 Urine Protein Negative Urine Glucose (UA) Neg Urine Ketones Negative Urine Blood Negative Urine Nitrate Negative Urine Bilirubin Negative Urine Urobilinogen 0.2-1.0 Ur Leukocyte Esterase Large Urine RBC (Auto) < 1 Urine Microscopic WBC 1 Ur Squamous Epith Cells 2 Urine Bacteria Rare Hyaline Casts 0-2 Influenza Typ A,B (EIA) 03/29/18 05:17 WBC RBC Hgb Hct MCV MCH MCHC RDW Plt Count MPV Neut % (Auto) Lymph % (Auto) [place] % (Auto) Eos % (Auto) Baso % (Auto) Neut # (Auto) Lymph # (Auto) [place] # (Auto) Eos # (Auto) Baso # (Auto) pO2 VBG pH VBG pCO2 VBG HCO3 VBG Total CO2 VBG O2 Sat (Calc) VBG Base Excess Glucose Lactate FiO2 Crit Value Called To Crit Value Called By Crit Value Read Back Blood Gas Notified Time Sodium Potassium Chloride Carbon Dioxide Anion Gap BUN Creatinine Est GFR ( Amer) Est GFR (Non-Af Amer) POC Glucose (mg/dL) 337 H Random Glucose Calcium Total Bilirubin AST ALT Alkaline Phosphatase Troponin I NT-Pro-B Natriuret Pep Total Protein Albumin Globulin Albumin/Globulin Ratio Urine Color Urine Clarity Urine pH Ur Specific [place] Urine Protein Urine Glucose (UA) Urine Ketones Urine Blood Urine Nitrate Urine Bilirubin Urine Urobilinogen Ur Leukocyte Esterase Urine RBC (Auto) Urine Microscopic WBC Ur Squamous Epith Cells Urine Bacteria Hyaline Casts Influenza Typ A,B (EIA) Attending/Attestation - Attestation I have personally seen and examined this patient.: Yes I have fully participated in the care of the patient.: Yes I have reviewed all pertinent clinical information: Yes Notes (Text): 03/29/18 09:52 Patient seen and examined with resident. Case discussed and agreed with assessment and plan of management.
[2018-03-28] MEDS ORDERED: Sodium Chloride 0.9% 1,000 ML IV SCH ×2 (19:45→22:02)
[2018-03-28] MEDS ORDERED: Azithromycin 500 MG IV IVPB ONE (20:15)
[2018-03-28] MEDS ORDERED: cefTRIAXone (Rocephin) 1 gm Inj ONE (20:16)
[2018-03-28] MEDS: Albuterol-Ipratrop 3 mg / 0.5 (3 ml) UD INH SCH ×2 (20:51→23:35)
[2018-03-28 21:08] LABS: VENOUS BLOOD GAS BASE EXCESS -10.9 mmol/L (0.0-2.0); VENOUS BLOOD GAS PCO2 52 mmHg (40-60); VENOUS BLOOD GAS PO2 72 mm/Hg (30-55); VENOUS BLOOD PH 7.15 (7.32-7.43)
[2018-03-28 21:29] LABS: B-TYPE NATRIURETIC PEPTIDE 162 pg/ml (0-900)
[2018-03-29 00:14] LABS: SQUAMOUS EPITHIAL 2 /hpf (0-5); URINE BACTERIA RARE (<OCC); URINE BILIRUBIN NEGATIVE (NEGATIVE); URINE BLOOD NEGATIVE (NEGATIVE); URINE CLARITY CLEAR (Clear); URINE COLOR STRAW (YELLOW); URINE GLUCOSE (UA) NEG (NEGATIVE); URINE HYALINE CAST 0-2 /hpf (0-2); URINE LEUKOCYTE ESTERASE LARGE Leu/uL (Negative); URINE PROTEIN NEGATIVE (NEGATIVE); URINE UROBILINOGEN 0.2-1.0 mg/dL (0.2-1.0)
[2018-03-29] MEDS: Albuterol-Ipratrop 3 mg / 0.5 (3 ml) UD INH SCH ×5 (03:23→19:31)
[2018-03-29 05:22] LABS: BASO # 0.1 K/uL (0.0-0.2); BASO % 0.7 % (0.0-2.0); LYMPH # 0.6 K/uL (1.0-4.3); LYMPH % 5.1 % (20.0-40.0); MEAN CELL VOLUME 87.8 fl (81.0-99.0); MEAN CORPUSCULAR HEMOGLOBIN 28.8 pg (27.0-31.0); MEAN CORPUSCULAR HGB CONC 32.8 g/dL (33.0-37.0); MONO # 0.2 K/uL (0.0-0.8); MONO % 1.7 % (0.0-10.0); NEUT # 11.1 K/uL (1.8-7.0); NEUT % 92.5 % (50.0-75.0); PLATELET COUNT 310 K/uL (130-400); RBC 4.15 Mil/uL (3.80-5.20)
[2018-03-29] MEDS ORDERED: Dextrose 50% SYRINGE Inj (50 ml) IV PRN (05:24)
[2018-03-29] MEDS ORDERED: Glucagon Recombinant 1 mg Inj IM PRN (05:24)
[2018-03-29 05:28] LABS: BLOOD UREA NITROGEN 22 mg/dl (7-17); CALCIUM 8.9 mg/dL (8.4-10.2); GFR NON-AFRICAN AMERICAN 54
[2018-03-29] MEDS: Insulin Lispro (humaLOG) 100 Units/ml Inj SC SCH ×4 (06:56→22:20)
[2018-03-29] MEDS: Levothyroxine 112 MCG TAB PO SCH ×2 (06:57→11:51)
--- NOTE | 2018-03-29 08:57 | CARD ---
APPROVED REPORT Date of service: 03/28/2018 EKG Measurement Heart [id number] <Conclusion> Sinus rhythm with 1st degree AV block Left axis deviation Moderate voltage criteria for LVH, may be normal variant Abnormal ECG
[2018-03-29] MEDS ORDERED: methylPREDNISolone 40 MG in Sodium Chloride 0.9% 50 ML IVPB SCH (09:00)
[2018-03-29] MEDS ORDERED: MethylPREDNISolone 40 mg Vial IVP SCH (09:00)
[2018-03-29] MEDS ORDERED: Azithromycin 500 MG in Sodium Chloride 0.9% 250 ML IVPB SCH (09:00)
[2018-03-29] MEDS ORDERED: Patient's Own Med (Losartan/Hydrochlorothiazide [Losartan-Hctz 100-25 Mg Tab] 1 TAB) PO SCH (09:00)
[2018-03-29 10:25] LABS: BANDS 1 % (0-2); LYMPHOCYTE 3 % (20-50); MONOCYTE 1 % (0-10); NEUTROPHIL 94 % (42-75); PLATELET ESTIMATE NORMAL (NORMAL); REACTIVE LYMPHOCYTES 1 % (0-0); TOTAL CELLS COUNTED 100
[2018-03-29 10:26] LABS: ANISOCYTOSIS SLIGHT
--- NOTE | 2018-03-29 11:33 | CP.PCM.PN ---
<Sylvia Velasco - Last Filed: 03/29/18 14:12> Subjective - Date & Time of Evaluation Date of Evaluation: 03/29/18 Time of Evaluation: 10:16 - Subjective Subjective: Patient was seen and examined this AM. Patient seen sitting upright comfortably, but still complaining of cough. She denied any fever, chills, chest pain or robert rtness of breath. Objective - Vital Signs/Intake and Output Vital Signs (last 24 hours): Temp Pulse Resp BP Pulse Ox 98.0 F 102 H 18 136/64 96 03/29/18 08:00 03/29/18 10:18 03/29/18 08:00 03/29/18 08:00 03/29/18 10:18 - Medications Medications: Current Medications Albuterol/Ipratropium (Duoneb 3 Mg/0.5 Mg (3 Ml) Ud) 3 ml INH RQ4 [facility]ASELI Last Admin: 03/29/18 11:32 Dose: 3 ml Benzonatate (Tessalon Perles) 100 mg PO Q8 PRN PRN Reason: Cough Last Admin: 03/28/18 22:59 Dose: 100 mg Dextrose (Dextrose 50% Inj) 0 ml IV STAT PRN; Protocol PRN Reason: Hypoglycemia Protocol Dextrose (Glutose 15) 0 gm PO ONCE PRN; Protocol PRN Reason: Hypoglycemia Protocol Enoxaparin Sodium (Lovenox) 40 mg SC DAILY [facility]ASELI; Protocol Folic Acid (Folic Acid) 1 mg PO DAILY [facility] Glipizide (Glucotrol Xl) 5 mg PO BRK [facility]ASELI Glucagon (Glucagen Diagnostic Kit) 0 mg IM STAT PRN; Protocol PRN Reason: Hypoglycemia Protocol Guaifenesin (Robitussin) 100 mg PO Q4 PRN PRN Reason: Cough Hydrochlorothiazide (Hydrodiuril) 25 mg PO DAILY [facility] Azithromycin 500 mg/ Sodium (Chloride) 250 mls @ 250 mls/hr IVPB DAILY [facility]ASELI; Protocol Ceftriaxone Sodium 1 gm/ (Sodium Chloride) 100 mls @ 100 mls/hr IVPB DAILY [facility]ASELI; Protocol Sodium Chloride (Sodium Chloride 0.9%) 1,000 mls @ 1,000 mls/hr IV .Q1H [facility]EL[facility] Stop: 03/29/18 19:39 Insulin Human Lispro (Humalog) 0 units SC ACTID [facility]ELI; Protocol Last Admin: 03/29/18 06:56 Dose: 6 units Levothyroxine Sodium (Synthroid) 112 mcg PO DAILY [facility] Last Admin: 03/29/18 06:57 Dose: 112 mcg Losartan Potassium (Cozaar) 100 mg PO DAILY [facility] Methylprednisolone (Solu-Medrol) 40 mg IVP Q12 [facility] Montelukast Sodium (Singulair) 10 mg PO HS [facility] Last Admin: 03/28/18 23:13 Dose: 10 mg Sitagliptin Phosphate (Januvia) 50 mg PO DAILY [facility] Zolpidem Tartrate (Ambien) 5 mg PO [facility] Last Admin: 03/28/18 22:59 Dose: 5 mg - Labs Labs: 03/29/18 04:20 03/29/18 04:20 - Head Exam Head Exam: ATRAUMATIC - Eye Exam Eye Exam: EOMI - ENT Exam ENT Exam: Mucous Membranes Moist - Respiratory Exam Respiratory Exam: absent: Respiratory Distress Additional comments: crackles noted over left chest - Cardiovascular Exam Cardiovascular Exam: REGULAR RHYTHM, +S1 - GI/Abdominal Exam GI & Abdominal Exam: Soft, Normal Bowel Sounds. absent: Guarding, Rigid - Extremities Exam Extremities Exam: absent: Calf Tenderness - Neurological Exam Neurological Exam: Alert, Oriented x3 - Psychiatric Exam Psychiatric exam: Normal Affect, Normal Mood - Skin Skin Exam: Dry, Intact Assessment and Plan - Assessment and Plan (Free Text) Assessment: 77 yo female with history of COPD, DM2, HTN, asthma, hypothyroidism and Breast Cancer (left lumpectomy plus radiation therapy 2017), admitted for further evaluation of clinical pneumonia. 1. Cough likely secondary to CAP(clinical diagnosis) -Leftsided crackles with P-122, WBC- 18.8 with lactate of 5.3 -CXR negative for acute disease. -Influenza negative. -Continue azithromycin 500mg PO QD & rocephin 1gm IV QD -Continue Tessalon [place] 100mg PO Q8 PRN -Robitussin 100mg PO Q4 PRN 2. Sepsis ( likely due to pneumonia) -Initially P:122, BP:160/80, WBC: 18.8 with lactate of 5.3, temp-98.6F, RR-18 -left sided crackles -UA negative for leukocytes or nitrates. -FU blood and urine cultures. -FU sputum, mycoplasma & legionella antigen. 3. COPD/asthma -Continue Solumedrol 40 mg IVP BID -Continue with singulair 10mg PO HS -Continue Duoneb 3ml INH Q4hrs -Fluticasone/Salmeterol 1 puff IH Q12 hx of breast CA -Anastrozole 1mg PO QD 4. HTN - Continue losartan 100 mg PO -Continue Hctz 25mg daily PO 5. Diabetes Mellitus, type 2 - Continue januvia 50mg PO QD -Continue glipizide 5mg PO QD - Med dose insulin coverage scale and hypoglycemia protocol 6. Hypothyroidism - Continue levothyroxine 112 mcg QD 7. Insomnia -Continue Ambien 5mg PO HS 8. Diet - Consistent carb/heart healthy 9. DVT prophylaxis - Lovenox 40mg SC QD <Stanley Baron D - Last Filed: 03/29/18 15:44> Objective - Vital Signs/Intake and Output Vital Signs (last 24 hours): Temp Pulse Resp BP Pulse Ox 98.1 F 78 18 144/68 94 L 03/29/18 12:00 03/29/18 12:00 03/29/18 12:00 03/29/18 12:00 03/29/18 12:00 - Medications Medications: Current Medications Albuterol/Ipratropium (Duoneb 3 Mg/0.5 Mg (3 Ml) Ud) 3 ml INH RQ4 [facility]ASELI Last Admin: 03/29/18 11:32 Dose: 3 ml Anastrozole (Arimidex 1 Mg Tab) 1 mg PO DAILY [facility] Last Admin: 03/29/18 14:21 Dose: 1 mg Azithromycin (Zithromax) 500 mg PO DAILY [facility]; Protocol Benzonatate (Tessalon Perles) 100 mg PO Q8 PRN PRN Reason: Cough Last Admin: 03/28/18 22:59 Dose: 100 mg Dextrose (Dextrose 50% Inj) 0 ml IV STAT PRN; Protocol PRN Reason: Hypoglycemia Protocol Dextrose (Glutose 15) 0 gm PO ONCE PRN; Protocol PRN Reason: Hypoglycemia Protocol Enoxaparin Sodium (Lovenox) 40 mg SC DAILY [facility]; Protocol Last Admin: 03/29/18 11:34 Dose: 40 mg Folic Acid (Folic Acid) 1 mg PO DAILY [facility] Last Admin: 03/29/18 11:36 Dose: 1 mg Glipizide (Glucotrol Xl) 5 mg PO BRK [facility] Last Admin: 03/29/18 11:37 Dose: 5 mg Glucagon (Glucagen Diagnostic Kit) 0 mg IM STAT PRN; Protocol PRN Reason: Hypoglycemia Protocol Guaifenesin (Robitussin) 100 mg PO Q4 PRN PRN Reason: Cough Last Admin: 03/29/18 11:34 Dose: 100 mg Hydrochlorothiazide (Hydrodiuril) 25 mg PO DAILY [facility] Last Admin: 03/29/18 11:35 Dose: 25 mg Ceftriaxone Sodium 1 gm/ (Sodium Chloride) 100 mls @ 100 mls/hr IVPB DAILY [facility]; Protocol Last Admin: 03/29/18 14:13 Dose: 100 mls/hr Sodium Chloride (Sodium Chloride 0.9%) 1,000 mls @ 1,000 mls/hr IV .Q1H [facility] Stop: 03/29/18 19:39 Insulin Human Lispro (Humalog) 0 units SC ACTID [facility]; Protocol Last Admin: 03/29/18 14:12 Dose: 4 units Levothyroxine Sodium (Synthroid) 112 mcg PO DAILY [facility] Last Admin: 03/29/18 11:51 Dose: Not Given Losartan Potassium (Cozaar) 100 mg PO DAILY [facility] Last Admin: 03/29/18 11:37 Dose: 100 mg Methylprednisolone (Solu-Medrol) 40 mg IVP DAILY [facility] Montelukast Sodium (Singulair) 10 mg PO HS [facility] Last Admin: 03/28/18 23:13 Dose: 10 mg Fluticasone/Salmeterol (Advair Diskus 250/50) 1 puff IH Q12H [facility] Last Admin: 03/29/18 14:10 Dose: 1 puff Sitagliptin Phosphate (Januvia) 50 mg PO DAILY [facility] Last Admin: 03/29/18 11:35 Dose: 50 mg Zolpidem Tartrate (Ambien) 5 mg PO HS [facility] Last Admin: 03/28/18 22:59 Dose: 5 mg - Labs Labs: 03/29/18 04:20 03/29/18 04:20 Attending/Attestation - Attestation I have personally seen and examined this patient.: Yes I have fully participated in the care of the patient.: Yes I have reviewed all pertinent clinical information, including history, physical exam and plan: Yes Notes (Text): 03/29/18 15:37 Patient seen and examined with resident. Case discussed and agreed with assessment and plans. Patient admitted feeling better although serum lactate remained elevated. Vital signs remained stable and ABG has normal pH and normal PO2. Ingrid again did not show any infiltrate.
[2018-03-29] MEDS: guaiFENesin 100 mg/5 ml Syrup UD PO PRN ×2 (11:34→21:49)
[2018-03-29] MEDS: Enoxaparin 40 mg Syringe SC SCH (11:34)
[2018-03-29] MEDS: GlipiZIDE 5 mg SR Tab PO SCH (11:37)
--- NOTE | 2018-03-29 12:06 | RAD ---
Date of service: 03/29/2018 HISTORY: reassess for pneumonia COMPARISON: 03/28/2018 TECHNIQUE: Chest PA and lateral FINDINGS: LUNGS: No active pulmonary disease. PLEURA: No significant pleural effusion identified. No pneumothorax apparent. CARDIOVASCULAR: No aortic atherosclerotic calcification present. Normal cardiac size. No pulmonary vascular congestion. OSSEOUS STRUCTURES: No significant abnormalities. VISUALIZED UPPER ABDOMEN: Normal. OTHER FINDINGS: None. IMPRESSION: No active disease.
[2018-03-29 13:15] LABS: ABG ALLEN TEST YES; ARTERIAL BLOOD GAS HCO3 21.9 mmol/L (21-28); ARTERIAL BLOOD GAS O2 SAT 99.2 % (95-98); ARTERIAL BLOOD GAS PCO2 28 mm/Hg (35-45); ARTERIAL BLOOD GAS PH 7.44 (7.35-7.45); ARTERIAL BLOOD GAS PO2 93 mm/Hg (80-100); ARTERIAL BLOOD GAS TCO2 19.9 mmol/L (22-28)
--- NOTE | 2018-03-29 14:08 | CP.PCM.CON ---
History of Present Illness - History of Present Illness History of Present Illness: Infectious Disease Consultation Note- asked to see this jelena at the request of for copd exacerbation/pneumonia HPI- Jelena is a pleasant 77 year old female with PMH of COPD, asthma, DM II, HTN, breast caner s/p left lumpectomy and radiation terpay in 2017, hypothyroidism who came to hospital for evaluation of worsening cough and sob. Umu explains for the past 3 weeks she has been having this cough with interm ittent whitish phlegm. She denies any fever or chills, denies any VANCE, denies any chest pain. She stated she was evaluated by her PMD during this time and given steroids, flonase, and cough suppressants, which she has been taking with no relief. I'm asked to evaluate and to help with antibiotic management. Patent denies any recent hospitalizations and denies any sick contacts. She states she did not get her flu vaccination this year. PMD: Dr. Hui Med hx: COPD, HTN, DM2, breast ca, hypothyroidism Surg hx: left breast lumpectomy, cataract surg, L eye prosthesis, colectomy 1988, knee arthroscopy Social hx: denies tobacco, drug, alcohol use Family hx: noncontributory Med rec reviewed Allergies: cat dander, chloroxine, dog dander, dust; nkda Review of Systems - Review of Systems Review of Systems: ROS- denies any fever or chills, denies any VANCE, + cough with whitish phlegm x 3 weeks, + sob, denies any chest pain, denies any nausea or vomiting, denies any abd. pain, denies any dysurea, chronic constipation Past Patient History - Tetanus Immunizations Tetanus Immunization: Unknown - Past Medical History & Family History Past Medical History?: Yes - Past Social History Smoking Status: Never Smoked Alcohol: None Drugs: Denies Home Situation {Lives}: With Family - CARDIAC Hx Cardia Arrhythmia: Yes Hx Heart Attack: Yes Hx Hypercholesterolemia: Yes Hx Hypertension: Yes - PULMONARY Hx Asthma: Yes Hx Bronchitis: Yes (2015) Hx Chronic Obstructive Pulmonary Disease (COPD): Yes - NEUROLOGICAL Hx Neurological Disorder: No - HEENT Hx HEENT Problems: Yes Hx Cataracts: Yes - RENAL Hx Chronic Kidney Disease: No - ENDOCRINE/METABOLIC Hx Diabetes Mellitus Type 2: Yes Hx Hypothyroidism: Yes - INTEGUMENTARY Hx Dermatological Problems: No - MUSCULOSKELETAL/RHEUMATOLOGICAL Hx Arthritis: Yes Hx Falls: Yes - GASTROINTESTINAL Hx Gastrointestinal Disorders: Yes Hx Bowel Surgery: Yes (Colectomy because of perforation, 1988) Hx Gastroesophageal Reflux: Yes (GERD) - GENITOURINARY/GYNECOLOGICAL Hx Genitourinary Disorders: Yes Other/Comment: Breast Cancer with Radiation Treatment - PSYCHIATRIC Hx Substance Use: No - SURGICAL HISTORY Hx Cataract Extraction: Yes Hx Cholecystectomy: Yes Hx Eye Surgery: Yes (left eye) Hx Hysterectomy: Yes Other/Comment: Colon Sx - ANESTHESIA Hx Anesthesia: Yes Hx Anesthesia Reactions: No Hx Malignant Hyperthermia: No Meds Allergies/Adverse Reactions: Allergies Allergy/AdvReac Type Severity Reaction Status Date / Time cat dander Allergy CONGESTION Verified 03/28/18 14:22 chloroxine Allergy CONGESTION Verified 03/28/18 14:22 dog dander Allergy CONGESTION Verified 03/28/18 14:22 dust Allergy CONGESTION Uncoded 03/28/18 14:22 - Medications Medications: Current Medications Albuterol/Ipratropium (Duoneb 3 Mg/0.5 Mg (3 Ml) Ud) 3 ml INH RQ4 ARASELI Last Admin: 03/29/18 11:32 Dose: 3 ml Anastrozole (Arimidex 1 Mg Tab) 1 mg PO DAILY ARASELI Benzonatate (Tessalon Perles) 100 mg PO Q8 PRN PRN Reason: Cough Last Admin: 03/28/18 22:59 Dose: 100 mg Dextrose (Dextrose 50% Inj) 0 ml IV STAT PRN; Protocol PRN Reason: Hypoglycemia Protocol Dextrose (Glutose 15) 0 gm PO ONCE PRN; Protocol PRN Reason: Hypoglycemia Protocol Enoxaparin Sodium (Lovenox) 40 mg SC DAILY [facility]; Protocol Last Admin: 03/29/18 11:34 Dose: 40 mg Folic Acid (Folic Acid) 1 mg PO DAILY ARASELI Last Admin: 03/29/18 11:36 Dose: 1 mg Glipizide (Glucotrol Xl) 5 mg PO BRK ARASELI Last Admin: 03/29/18 11:37 Dose: 5 mg Glucagon (Glucagen Diagnostic Kit) 0 mg IM STAT PRN; Protocol PRN Reason: Hypoglycemia Protocol Guaifenesin (Robitussin) 100 mg PO Q4 PRN PRN Reason: Cough Last Admin: 03/29/18 11:34 Dose: 100 mg Hydrochlorothiazide (Hydrodiuril) 25 mg PO DAILY [facility] Last Admin: 03/29/18 11:35 Dose: 25 mg Azithromycin 500 mg/ Sodium (Chloride) 250 mls @ 250 mls/hr IVPB DAILY [facility]; Protocol Last Admin: 03/29/18 14:00 Dose: Not Given Ceftriaxone Sodium 1 gm/ (Sodium Chloride) 100 mls @ 100 mls/hr IVPB DAILY [facility]; Protocol Sodium Chloride (Sodium Chloride 0.9%) 1,000 mls @ 1,000 mls/hr IV .Q1H [facility] Stop: 03/29/18 19:39 Insulin Human Lispro (Humalog) 0 units SC ACTID [facility]; Protocol Last Admin: 03/29/18 06:56 Dose: 6 units Levothyroxine Sodium (Synthroid) 112 mcg PO DAILY [facility] Last Admin: 03/29/18 11:51 Dose: Not Given Losartan Potassium (Cozaar) 100 mg PO DAILY [facility] Last Admin: 03/29/18 11:37 Dose: 100 mg Methylprednisolone (Solu-Medrol) 40 mg IVP Q12 [facility] Last Admin: 03/29/18 11:48 Dose: 40 mg Montelukast Sodium (Singulair) 10 mg PO HS [facility] Last Admin: 03/28/18 23:13 Dose: 10 mg Fluticasone/Salmeterol (Advair Diskus 250/50) 1 puff IH Q12H [facility] Sitagliptin Phosphate (Januvia) 50 mg PO DAILY [facility] Last Admin: 03/29/18 11:35 Dose: 50 mg Zolpidem Tartrate (Ambien) 5 mg PO [facility] Last Admin: 03/28/18 22:59 Dose: 5 mg Physical Exam - Constitutional Appears: No Acute Distress - Head Exam Head Exam: ATRAUMATIC - Eye Exam Eye Exam: EOMI - ENT Exam ENT Exam: Normal Oropharynx - Neck Exam Neck exam: Positive for: Full Rom - Respiratory Exam Respiratory Exam: NORMAL BREATHING PATTERN Additional comments: No wheezing good breath sounds except left base with crackles - Cardiovascular Exam Cardiovascular Exam: RRR, +S1, +S2 - GI/Abdominal Exam GI & Abdominal Exam: Normal Bowel Sounds, Soft Additional comments: NT, ND - Extremities Exam Extremities exam: Positive for: normal inspection - Neurological Exam Neurological exam: Alert, Oriented x3 Results - Vital Signs Recent Vital Signs: Last Vital Signs Temp 98.1 F 03/29/18 12:00 Pulse 78 03/29/18 12:00 Resp 18 03/29/18 12:00 BP 144/68 03/29/18 12:00 Pulse Ox 94 L 03/29/18 12:00 - Labs Result Diagrams: 03/29/18 04:20 03/29/18 04:20 Labs: Laboratory Results - last 24 hr 03/28/18 03/28/18 03/28/18 16:00 16:00 16:00 WBC 18.8 H D RBC 4.34 Hgb 12.3 Hct 38.1 MCV 87.9 D MCH 28.4 MCHC 32.4 L RDW 14.9 H Plt Count 323 MPV 10.9 Neut % (Auto) 77.4 H Lymph % (Auto) 12.4 L Preston % (Auto) 6.9 Eos % (Auto) 2.0 Baso % (Auto) 1.3 Neut # (Auto) 14.5 H Lymph # (Auto) 2.3 Preston # (Auto) 1.3 H Eos # (Auto) 0.4 Baso # (Auto) 0.2 Neutrophils % (Manual) Band Neutrophils % Lymphocytes % (Manual) Reactive Lymphs % Monocytes % (Manual) Platelet Estimate Anisocytosis (manual) pCO2 pO2 HCO3 ABG pH ABG Total CO2 ABG O2 Saturation ABG Base Excess Nathaniel Test ABG Potassium VBG pH VBG pCO2 VBG HCO3 VBG Total CO2 VBG O2 Sat (Calc) VBG Base Excess A-a O2 Difference Glucose Lactate FiO2 Blood Gas Comments Crit Value Called To Crit Value Called By Crit Value Read Back Blood Gas Notified Time Sodium 137 Potassium 4.9 Chloride 101 Carbon Dioxide 22 Anion Gap 19 BUN 22 H Creatinine 1.0 Est GFR ( Amer) > 60 Est GFR (Non-Af Amer) 54 POC Glucose (mg/dL) Random Glucose 131 H Lactic Acid Calcium 8.8 Total Bilirubin 0.3 AST 18 ALT 30 Alkaline Phosphatase 123 Troponin I NT-Pro-B Natriuret Pep Total Protein 7.3 Albumin 4.0 Globulin 3.3 Albumin/Globulin Ratio 1.2 Arterial Blood Potassium Urine Color Urine Clarity Urine pH Ur Specific [place] Urine Protein Urine Glucose (UA) Urine Ketones Urine Blood Urine Nitrate Urine Bilirubin Urine Urobilinogen Ur Leukocyte Esterase Urine RBC (Auto) Urine Microscopic WBC Ur Squamous Epith Cells Urine Bacteria Hyaline Casts Influenza Typ A,B (EIA) Negative for flu a/b 03/28/18 03/28/18 03/28/18 20:30 20:41 22:33 WBC RBC Hgb Hct MCV MCH MCHC RDW Plt Count MPV Neut % (Auto) Lymph % (Auto) [place] % (Auto) Eos % (Auto) Baso % (Auto) Neut # (Auto) Lymph # (Auto) [place] # (Auto) Eos # (Auto) Baso # (Auto) Neutrophils % (Manual) Band Neutrophils % Lymphocytes % (Manual) Reactive Lymphs % Monocytes % (Manual) Platelet Estimate Anisocytosis (manual) pCO2 pO2 72 H HCO3 ABG pH ABG Total CO2 ABG O2 Saturation ABG Base Excess Nathaniel Test ABG Potassium VBG pH 7.15 L* VBG pCO2 52 VBG HCO3 16.2 VBG Total CO2 19.7 L VBG O2 Sat (Calc) 95.4 H VBG Base Excess -10.9 L A-a O2 Difference Glucose 269 H Lactate 4.8 H* FiO2 21.0 Blood Gas Comments Crit Value Called To Dr nneka caruso Crit Value Called By 5 Crit Value Read Back Y Blood Gas Notified Time 2150 Sodium 121.0 L Potassium Chloride 104.0 Carbon Dioxide Anion Gap BUN Creatinine Est GFR ( Amer) Est GFR (Non-Af Amer) POC Glucose (mg/dL) 221 H Random Glucose Lactic Acid Calcium Total Bilirubin AST ALT Alkaline Phosphatase Troponin I < 0.0120 NT-Pro-B Natriuret Pep 162 Total Protein Albumin Globulin Albumin/Globulin Ratio Arterial Blood Potassium Urine Color Urine Clarity Urine pH Ur Specific [place] Urine Protein Urine Glucose (UA) Urine Ketones Urine Blood Urine Nitrate Urine Bilirubin Urine Urobilinogen Ur Leukocyte Esterase Urine RBC (Auto) Urine Microscopic WBC Ur Squamous Epith Cells Urine Bacteria Hyaline Casts Influenza Typ A,B (EIA) 03/28/18 03/29/18 03/29/18 23:30 04:20 04:20 WBC 12.0 H RBC 4.15 Hgb 12.0 Hct 36.4 MCV 87.8 MCH 28.8 MCHC 32.8 L RDW 15.0 H Plt Count 310 MPV 11.0 Neut % (Auto) 92.5 H Lymph % (Auto) 5.1 L [place] % (Auto) 1.7 Eos % (Auto) 0.0 Baso % (Auto) 0.7 Neut # (Auto) 11.1 H Lymph # (Auto) 0.6 L [place] # (Auto) 0.2 Eos # (Auto) 0.0 Baso # (Auto) 0.1 Neutrophils % (Manual) 94 H Band Neutrophils % 1 Lymphocytes % (Manual) 3 L Reactive Lymphs % 1 H Monocytes % (Manual) 1 Platelet Estimate Normal Anisocytosis (manual) Slight pCO2 pO2 HCO3 ABG pH ABG Total CO2 ABG O2 Saturation ABG Base Excess Nathaniel Test ABG Potassium VBG pH VBG pCO2 VBG HCO3 VBG Total CO2 VBG O2 Sat (Calc) VBG Base Excess A-a O2 Difference Glucose Lactate FiO2 Blood Gas Comments Crit Value Called To Crit Value Called By Crit Value Read Back Blood Gas Notified Time Sodium 137 Potassium 4.5 Chloride 99 Carbon Dioxide 23 Anion Gap 20 BUN 22 H Creatinine 1.0 Est GFR ( Amer) > 60 Est GFR (Non-Af Amer) 54 POC Glucose (mg/dL) Random Glucose 349 H Lactic Acid Calcium 8.9 Total Bilirubin AST ALT Alkaline Phosphatase Troponin I NT-Pro-B Natriuret Pep Total Protein Albumin Globulin Albumin/Globulin Ratio Arterial Blood Potassium Urine Color Straw Urine Clarity Clear Urine pH 7.0 Ur Specific [place] 1.010 Urine Protein Negative Urine Glucose (UA) Neg Urine Ketones Negative Urine Blood Negative Urine Nitrate Negative Urine Bilirubin Negative Urine Urobilinogen 0.2-1.0 Ur Leukocyte Esterase Large Urine RBC (Auto) < 1 Urine Microscopic WBC 1 Ur Squamous Epith Cells 2 Urine Bacteria Rare Hyaline Casts 0-2 Influenza Typ A,B (EIA) 03/29/18 03/29/18 03/29/18 05:17 11:03 11:30 WBC RBC Hgb Hct MCV MCH MCHC RDW Plt Count MPV Neut % (Auto) Lymph % (Auto) [place] % (Auto) Eos % (Auto) Baso % (Auto) Neut # (Auto) Lymph # (Auto) [place] # (Auto) Eos # (Auto) Baso # (Auto) Neutrophils % (Manual) Band Neutrophils % Lymphocytes % (Manual) Reactive Lymphs % Monocytes % (Manual) Platelet Estimate Anisocytosis (manual) pCO2 pO2 HCO3 ABG pH ABG Total CO2 ABG O2 Saturation ABG Base Excess Nathaniel Test ABG Potassium VBG pH VBG pCO2 VBG HCO3 VBG Total CO2 VBG O2 Sat (Calc) VBG Base Excess A-a O2 Difference Glucose Lactate FiO2 Blood Gas Comments Crit Value Called To Crit Value Called By Crit Value Read Back Blood Gas Notified Time Sodium Potassium Chloride Carbon Dioxide Anion Gap BUN Creatinine Est GFR ( Amer) Est GFR (Non-Af Amer) POC Glucose (mg/dL) 337 H 279 H Random Glucose Lactic Acid 5.3 H* Calcium Total Bilirubin AST ALT Alkaline Phosphatase Troponin I NT-Pro-B Natriuret Pep Total Protein Albumin Globulin Albumin/Globulin Ratio Arterial Blood Potassium Urine Color Urine Clarity Urine pH Ur Specific [place] Urine Protein Urine Glucose (UA) Urine Ketones Urine Blood Urine Nitrate Urine Bilirubin Urine Urobilinogen Ur Leukocyte Esterase Urine RBC (Auto) Urine Microscopic WBC Ur Squamous Epith Cells Urine Bacteria Hyaline Casts Influenza Typ A,B (EIA) 03/29/18 12:55 WBC RBC Hgb Hct MCV MCH MCHC RDW Plt Count MPV Neut % (Auto) Lymph % (Auto) [place] % (Auto) Eos % (Auto) Baso % (Auto) Neut # (Auto) Lymph # (Auto) [place] # (Auto) Eos # (Auto) Baso # (Auto) Neutrophils % (Manual) Band Neutrophils % Lymphocytes % (Manual) Reactive Lymphs % Monocytes % (Manual) Platelet Estimate Anisocytosis (manual) pCO2 28 L pO2 93 HCO3 21.9 ABG pH 7.44 ABG Total CO2 19.9 L ABG O2 Saturation 99.2 H ABG Base Excess -3.9 L Nathaniel Test Yes ABG Potassium 4.2 VBG pH VBG pCO2 VBG HCO3 VBG Total CO2 VBG O2 Sat (Calc) VBG Base Excess A-a O2 Difference 22.0 Glucose 383 H Lactate 5.3 H* FiO2 21.0 Blood Gas Comments Ra 21 Crit Value Called To Dr. ulises hagan m.d. Crit Value Called By Myesha Crit Value Read Back Y Blood Gas Notified Time 1315 Sodium 133.0 Potassium Chloride 101.0 Carbon Dioxide Anion Gap BUN Creatinine Est GFR ( Amer) Est GFR (Non-Af Amer) POC Glucose (mg/dL) Random Glucose Lactic Acid Calcium Total Bilirubin AST ALT Alkaline Phosphatase Troponin I NT-Pro-B Natriuret Pep Total Protein Albumin Globulin Albumin/Globulin Ratio Arterial Blood Potassium 4.2 Urine Color Urine Clarity Urine pH Ur Specific [place] Urine Protein Urine Glucose (UA) Urine Ketones Urine Blood Urine Nitrate Urine Bilirubin Urine Urobilinogen Ur Leukocyte Esterase Urine RBC (Auto) Urine Microscopic WBC Ur Squamous Epith Cells Urine Bacteria Hyaline Casts Influenza Typ A,B (EIA) Laboratory Results - last 72 hr 03/28/18 03/28/18 03/28/18 16:00 16:00 16:00 WBC 18.8 H D RBC 4.34 Hgb 12.3 Hct 38.1 MCV 87.9 D MCH 28.4 MCHC 32.4 L RDW 14.9 H Plt Count 323 MPV 10.9 Neut % (Auto) 77.4 H Lymph % (Auto) 12.4 L [place] % (Auto) 6.9 Eos % (Auto) 2.0 Baso % (Auto) 1.3 Neut # (Auto) 14.5 H Lymph # (Auto) 2.3 Preston # (Auto) 1.3 H Eos # (Auto) 0.4 Baso # (Auto) 0.2 Neutrophils % (Manual) Band Neutrophils % Lymphocytes % (Manual) Reactive Lymphs % Monocytes % (Manual) Platelet Estimate Anisocytosis (manual) pCO2 pO2 HCO3 ABG pH ABG Total CO2 ABG O2 Saturation ABG Base Excess Nathaniel Test ABG Potassium VBG pH VBG pCO2 VBG HCO3 VBG Total CO2 VBG O2 Sat (Calc) VBG Base Excess A-a O2 Difference Glucose Lactate FiO2 Blood Gas Comments Crit Value Called To Crit Value Called By Crit Value Read Back Blood Gas Notified Time Sodium 137 Potassium 4.9 Chloride 101 Carbon Dioxide 22 Anion Gap 19 BUN 22 H Creatinine 1.0 Est GFR ( Amer) > 60 Est GFR (Non-Af Amer) 54 POC Glucose (mg/dL) Random Glucose 131 H Lactic Acid Calcium 8.8 Total Bilirubin 0.3 AST 18 ALT 30 Alkaline Phosphatase 123 Troponin I NT-Pro-B Natriuret Pep Total Protein 7.3 Albumin 4.0 Globulin 3.3 Albumin/Globulin Ratio 1.2 Arterial Blood Potassium Urine Color Urine Clarity Urine pH Ur Specific [place] Urine Protein Urine Glucose (UA) Urine Ketones Urine Blood Urine Nitrate Urine Bilirubin Urine Urobilinogen Ur Leukocyte Esterase Urine RBC (Auto) Urine Microscopic WBC Ur Squamous Epith Cells Urine Bacteria Hyaline Casts Influenza Typ A,B (EIA) Negative for flu a/b Ur L.pneumophila Ag 03/28/18 03/28/18 03/28/18 20:30 20:41 21:09 WBC RBC Hgb Hct MCV MCH MCHC RDW Plt Count MPV Neut % (Auto) Lymph % (Auto) [place] % (Auto) Eos % (Auto) Baso % (Auto) Neut # (Auto) Lymph # (Auto) [place] # (Auto) Eos # (Auto) Baso # (Auto) Neutrophils % (Manual) Band Neutrophils % Lymphocytes % (Manual) Reactive Lymphs % Monocytes % (Manual) Platelet Estimate Anisocytosis (manual) pCO2 pO2 72 H HCO3 ABG pH ABG Total CO2 ABG O2 Saturation ABG Base Excess Nathaniel Test ABG Potassium VBG pH 7.15 L* VBG pCO2 52 VBG HCO3 16.2 VBG Total CO2 19.7 L VBG O2 Sat (Calc) 95.4 H VBG Base Excess -10.9 L A-a O2 Difference Glucose 269 H Lactate 4.8 H* FiO2 21.0 Blood Gas Comments Crit Value Called To Dr nneka caruso Crit Value Called By 5 Crit Value Read Back Y Blood Gas Notified Time 2150 Sodium 121.0 L Potassium Chloride 104.0 Carbon Dioxide Anion Gap BUN Creatinine Est GFR ( Amer) Est GFR (Non-Af Amer) POC Glucose (mg/dL) Random Glucose Lactic Acid Calcium Total Bilirubin AST ALT Alkaline Phosphatase Troponin I < 0.0120 NT-Pro-B Natriuret Pep 162 Total Protein Albumin Globulin Albumin/Globulin Ratio Arterial Blood Potassium Urine Color Urine Clarity Urine pH Ur Specific [place] Urine Protein Urine Glucose (UA) Urine Ketones Urine Blood Urine Nitrate Urine Bilirubin Urine Urobilinogen Ur Leukocyte Esterase Urine RBC (Auto) Urine Microscopic WBC Ur Squamous Epith Cells Urine Bacteria Hyaline Casts Influenza Typ A,B (EIA) Ur L.pneumophila Ag Negative 03/28/18 03/28/18 03/29/18 22:33 23:30 04:20 WBC 12.0 H RBC 4.15 Hgb 12.0 Hct 36.4 MCV 87.8 MCH 28.8 MCHC 32.8 L RDW 15.0 H Plt Count 310 MPV 11.0 Neut % (Auto) 92.5 H Lymph % (Auto) 5.1 L [place] % (Auto) 1.7 Eos % (Auto) 0.0 Baso % (Auto) 0.7 Neut # (Auto) 11.1 H Lymph # (Auto) 0.6 L [place] # (Auto) 0.2 Eos # (Auto) 0.0 Baso # (Auto) 0.1 Neutrophils % (Manual) 94 H Band Neutrophils % 1 Lymphocytes % (Manual) 3 L Reactive Lymphs % 1 H Monocytes % (Manual) 1 Platelet Estimate Normal Anisocytosis (manual) Slight pCO2 pO2 HCO3 ABG pH ABG Total CO2 ABG O2 Saturation ABG Base Excess Nathaniel Test ABG Potassium VBG pH VBG pCO2 VBG HCO3 VBG Total CO2 VBG O2 Sat (Calc) VBG Base Excess A-a O2 Difference Glucose Lactate FiO2 Blood Gas Comments Crit Value Called To Crit Value Called By Crit Value Read Back Blood Gas Notified Time Sodium Potassium Chloride Carbon Dioxide Anion Gap BUN Creatinine Est GFR ( Amer) Est GFR (Non-Af Amer) POC Glucose (mg/dL) 221 H Random Glucose Lactic Acid Calcium Total Bilirubin AST ALT Alkaline Phosphatase Troponin I NT-Pro-B Natriuret Pep Total Protein Albumin Globulin Albumin/Globulin Ratio Arterial Blood Potassium Urine Color Straw Urine Clarity Clear Urine pH 7.0 Ur Specific [place] 1.010 Urine Protein Negative Urine Glucose (UA) Neg Urine Ketones Negative Urine Blood Negative Urine Nitrate Negative Urine Bilirubin Negative Urine Urobilinogen 0.2-1.0 Ur Leukocyte Esterase Large Urine RBC (Auto) < 1 Urine Microscopic WBC 1 Ur Squamous Epith Cells 2 Urine Bacteria Rare Hyaline Casts 0-2 Influenza Typ A,B (EIA) Ur L.pneumophila Ag 03/29/18 03/29/18 03/29/18 04:20 05:17 11:03 WBC RBC Hgb Hct MCV MCH MCHC RDW Plt Count MPV Neut % (Auto) Lymph % (Auto) [place] % (Auto) Eos % (Auto) Baso % (Auto) Neut # (Auto) Lymph # (Auto) [place] # (Auto) Eos # (Auto) Baso # (Auto) Neutrophils % (Manual) Band Neutrophils % Lymphocytes % (Manual) Reactive Lymphs % Monocytes % (Manual) Platelet Estimate Anisocytosis (manual) pCO2 pO2 HCO3 ABG pH ABG Total CO2 ABG O2 Saturation ABG Base Excess Nathaniel Test ABG Potassium VBG pH VBG pCO2 VBG HCO3 VBG Total CO2 VBG O2 Sat (Calc) VBG Base Excess A-a O2 Difference Glucose Lactate FiO2 Blood Gas Comments Crit Value Called To Crit Value Called By Crit Value Read Back Blood Gas Notified Time Sodium 137 Potassium 4.5 Chloride 99 Carbon Dioxide 23 Anion Gap 20 BUN 22 H Creatinine 1.0 Est GFR ( Amer) > 60 Est GFR (Non-Af Amer) 54 POC Glucose (mg/dL) 337 H 279 H Random Glucose 349 H Lactic Acid Calcium 8.9 Total Bilirubin AST ALT Alkaline Phosphatase Troponin I NT-Pro-B Natriuret Pep Total Protein Albumin Globulin Albumin/Globulin Ratio Arterial Blood Potassium Urine Color Urine Clarity Urine pH Ur Specific [place] Urine Protein Urine Glucose (UA) Urine Ketones Urine Blood Urine Nitrate Urine Bilirubin Urine Urobilinogen Ur Leukocyte Esterase Urine RBC (Auto) Urine Microscopic WBC Ur Squamous Epith Cells Urine Bacteria Hyaline Casts Influenza Typ A,B (EIA) Ur L.pneumophila Ag 03/29/18 03/29/18 11:30 12:55 WBC RBC Hgb Hct MCV MCH MCHC RDW Plt Count MPV Neut % (Auto) Lymph % (Auto) [place] % (Auto) Eos % (Auto) Baso % (Auto) Neut # (Auto) Lymph # (Auto) [place] # (Auto) Eos # (Auto) Baso # (Auto) Neutrophils % (Manual) Band Neutrophils % Lymphocytes % (Manual) Reactive Lymphs % Monocytes % (Manual) Platelet Estimate Anisocytosis (manual) pCO2 28 L pO2 93 HCO3 21.9 ABG pH 7.44 ABG Total CO2 19.9 L ABG O2 Saturation 99.2 H ABG Base Excess -3.9 L Nathaniel Test Yes ABG Potassium 4.2 VBG pH VBG pCO2 VBG HCO3 VBG Total CO2 VBG O2 Sat (Calc) VBG Base Excess A-a O2 Difference 22.0 Glucose 383 H Lactate 5.3 H* FiO2 21.0 Blood Gas Comments Ra 21 Crit Value Called To Dr. ulises hagan m.d. Crit Value Called By Myesha Crit Value Read Back Y Blood Gas Notified Time 1315 Sodium 133.0 Potassium Chloride 101.0 Carbon Dioxide Anion Gap BUN Creatinine Est GFR ( Amer) Est GFR (Non-Af Amer) POC Glucose (mg/dL) Random Glucose Lactic Acid 5.3 H* Calcium Total Bilirubin AST ALT Alkaline Phosphatase Troponin I NT-Pro-B Natriuret Pep Total Protein Albumin Globulin Albumin/Globulin Ratio Arterial Blood Potassium 4.2 Urine Color Urine Clarity Urine pH Ur Specific [place] Urine Protein Urine Glucose (UA) Urine Ketones Urine Blood Urine Nitrate Urine Bilirubin Urine Urobilinogen Ur Leukocyte Esterase Urine RBC (Auto) Urine Microscopic WBC Ur Squamous Epith Cells Urine Bacteria Hyaline Casts Influenza Typ A,B (EIA) Ur L.pneumophila Ag Accession No. : [id number] Patient Name / ID : WILLEM HAMILTON / [id number] Exam Date : 03/29/2018 10:16:31 ( Approved ) Study Comment : Sex / Age : F / [id number] Creator : elen rush Dictator : Marlo Morales MD Cushion Gum Applicator : Assistant Professor Of Surgery : Marlo Morales MD Approver2 : Report Date : 03/29/2018 10:26:20 My Comment : Date of service: 03/29/2018 HISTORY: reassess for pneumonia COMPARISON: 03/28/2018 TECHNIQUE: Chest PA and lateral FINDINGS: LUNGS: No active pulmonary disease. PLEURA: No significant pleural effusion identified. No pneumothorax apparent. CARDIOVASCULAR: No aortic atherosclerotic calcification present. Normal cardiac size. No pulmonary vascular congestion. OSSEOUS STRUCTURES: No significant abnormalities. VISUALIZED UPPER ABDOMEN: Normal. OTHER FINDINGS: None. IMPRESSION: No active disease. Assessment & Plan (1) COPD exacerbation Status: Acute (2) DM2 (diabetes mellitus, type 2) Status: Chronic (3) HTN (hypertension) Status: Chronic (4) Breast cancer Status: Acute - Assessment and Plan (Free Text) Assessment: A/P- 77 year old female with multiple medical conditions inclduing COPD, DM II, HTN admitted with cough and sob most likely COPD exacerbation. She is afebrile does have leukocytosis but could be partially secondary to the steroids as well. CXR- negative as per report. plan- check sputum culture. check urine legionella AG. check mycoplasma IGM. agree with ceftriaxone and zithromax to cover for CAP. zithromax can be given orally. all labs and imaging reviewed. all above d/w patient and she verbalizes full understanding of all above and agrees with above plan of care. Thank you for allowing me to take part in the care of this patient.
[2018-03-29] MEDS: Fluticasone-Salmeterol 250-50mcg Diskus IH SCH (14:10)
[2018-03-30] MEDS: Albuterol-Ipratrop 3 mg / 0.5 (3 ml) UD INH SCH ×4 (00:08→10:59)
[2018-03-30] MEDS: Fluticasone-Salmeterol 250-50mcg Diskus IH SCH ×2 (01:20→12:26)
[2018-03-30] MEDS: Insulin Lispro (humaLOG) 100 Units/ml Inj SC SCH ×2 (06:35→12:23)
[2018-03-30 06:37] LABS: BASO # 0.1 K/uL (0.0-0.2); BASO % 0.6 % (0.0-2.0); EOS % 0.1 % (0.0-4.0); HEMOGLOBIN 11.3 g/dL (12.0-16.0); LYMPH # 1.4 K/uL (1.0-4.3); LYMPH % 6.9 % (20.0-40.0); MEAN CELL VOLUME 89.9 fl (81.0-99.0); MEAN CORPUSCULAR HEMOGLOBIN 29.8 pg (27.0-31.0); MEAN CORPUSCULAR HGB CONC 33.1 g/dL (33.0-37.0); MEAN PLATELET VOLUME 12.2 fl (7.2-11.7); MONO % 4.8 % (0.0-10.0); NEUT # 17.5 K/uL (1.8-7.0); NEUT % 87.6 % (50.0-75.0); NRBC % 0.1 % (0.0-0.0); RBC 3.81 Mil/uL (3.80-5.20); RED CELL DISTRIBUTION WIDTH 15.2 % (11.5-14.5)
[2018-03-30 08:10] VITALS: RESP 20
[2018-03-30] MEDS ORDERED: MethylPREDNISolone 40 mg Vial IVP SCH ×2 (09:00→11:45)
[2018-03-30] MEDS: GlipiZIDE 5 mg SR Tab PO SCH (09:00)
[2018-03-30] MEDS: guaiFENesin 100 mg/5 ml Syrup UD PO PRN (09:06)
[2018-03-30] MEDS: Enoxaparin 40 mg Syringe SC SCH (09:08)
[2018-03-30] MEDS: Levothyroxine 112 MCG TAB PO SCH (09:09)
--- NOTE | 2018-03-30 11:22 | CP.PCM.PN ---
Subjective - Date & Time of Evaluation Date of Evaluation: 03/30/18 Time of Evaluation: 11:17 - Subjective Subjective: - Patient was seen at bedside this morning. States she is feeling better. Her IV line had been infilterated and she was requesting on going home since she is feeling better. Have informed patient about her elevated lactic acid level which may be do to infection vs dehydration. She has remained afebrile however her white count has been elevated which may be secondary to steroids. Patient has been advised she would have to AMA to leave and understand the risks. She has changed her mind to stay and agrees to treatment. Have spoke to nurse to put another line in her for hydration and antibiotics. Objective - Vital Signs/Intake and Output Vital Signs (last 24 hours): Temp Pulse Resp BP Pulse Ox 98.2 F 93 H 20 128/64 100 03/30/18 08:10 03/30/18 08:59 03/30/18 08:10 03/30/18 08:59 03/30/18 08:10 - Medications Medications: Current Medications Albuterol/Ipratropium (Duoneb 3 Mg/0.5 Mg (3 Ml) Ud) 3 ml INH RQ4 ARASELI Last Admin: 03/30/18 10:59 Dose: 3 ml Anastrozole (Arimidex 1 Mg Tab) 1 mg PO DAILY ARASELI Last Admin: 03/30/18 08:58 Dose: 1 mg Azithromycin (Zithromax) 500 mg PO DAILY ARASELI; Protocol Last Admin: 03/30/18 09:09 Dose: 500 mg Benzonatate (Tessalon Perles) 100 mg PO Q8 PRN PRN Reason: Cough Last Admin: 03/28/18 22:59 Dose: 100 mg Dextrose (Dextrose 50% Inj) 0 ml IV STAT PRN; Protocol PRN Reason: Hypoglycemia Protocol Dextrose (Glutose 15) 0 gm PO ONCE PRN; Protocol PRN Reason: Hypoglycemia Protocol Enoxaparin Sodium (Lovenox) 40 mg SC DAILY ARASELI; Protocol Last Admin: 03/30/18 09:08 Dose: Not Given Folic Acid (Folic Acid) 1 mg PO DAILY ARASELI Last Admin: 03/30/18 09:00 Dose: 1 mg Glipizide (Glucotrol Xl) 5 mg PO BRK ARASELI Last Admin: 03/30/18 09:00 Dose: 5 mg Glucagon (Glucagen Diagnostic Kit) 0 mg IM STAT PRN; Protocol PRN Reason: Hypoglycemia Protocol Guaifenesin (Robitussin) 100 mg PO Q4 PRN PRN Reason: Cough Last Admin: 03/30/18 09:06 Dose: 100 mg Hydrochlorothiazide (Hydrodiuril) 25 mg PO DAILY [facility] Last Admin: 03/30/18 09:00 Dose: 25 mg Ceftriaxone Sodium 1 gm/ (Sodium Chloride) 100 mls @ 100 mls/hr IVPB DAILY [facility]; Protocol Last Admin: 03/29/18 14:13 Dose: 100 mls/hr Insulin Human Lispro (Humalog) 0 units SC ACHS [facility]; Protocol Last Admin: 03/30/18 06:35 Dose: 4 units Levothyroxine Sodium (Synthroid) 112 mcg PO DAILY [facility] Last Admin: 03/30/18 09:09 Dose: 112 mcg Losartan Potassium (Cozaar) 100 mg PO DAILY [facility] Last Admin: 03/30/18 08:59 Dose: 100 mg Methylprednisolone (Solu-Medrol) 40 mg IVP DAILY [facility] Montelukast Sodium (Singulair) 10 mg PO HS [facility] Last Admin: 03/29/18 21:49 Dose: 10 mg Fluticasone/Salmeterol (Advair Diskus 250/50) 1 puff IH Q12H [facility] Last Admin: 03/30/18 01:20 Dose: 1 puff Sitagliptin Phosphate (Januvia) 50 mg PO DAILY [facility] Last Admin: 03/30/18 09:11 Dose: 50 mg Zolpidem Tartrate (Ambien) 5 mg PO HS [facility] Last Admin: 03/29/18 21:50 Dose: 5 mg - Labs Labs: 03/30/18 04:30 03/30/18 04:30 Assessment and Plan - Assessment and Plan (Free Text) Assessment: 77 yo female with history of COPD, DM2, HTN, asthma, hypothyroidism and Breast Cancer (left lumpectomy plus radiation therapy 2017), admitted for further evaluation of clinical pneumonia. 1. Cough likely secondary to CAP(clinical diagnosis) - On admission P-122, WBC- 18.8 with lactate of 5.3 - White count had trended down to 12 however elevated back up to 20. With a left shift -CXR negative for acute disease. -Influenza negative. -Continue azithromycin 500mg PO QD & rocephin 1gm IV QD -Continue Tessalon Pearls 100mg PO Q8 PRN -Robitussin 100mg PO Q4 PRN 2. Sepsis ( likely due to pneumonia) -Initially P:122, BP:160/80, WBC: 18.8 with lactate of 5.3, temp-98.6F, RR-18 -UA negative for leukocytes or nitrates. -Urine culture shows not growth on final resuts - Blood cultures show no growth in 24 hours -FU sputum, mycoplasma & legionella antigen. 3) 3. COPD/asthma -Continue Solumedrol 30 mg IVP BID -Continue with singulair 10mg PO HS -Continue Duoneb 3ml INH Q4hrs -Fluticasone/Salmeterol 1 puff IH Q12 4) hx of breast CA -Anastrozole 1mg PO QD 5. HTN - Continue losartan 100 mg PO -Continue Hctz 25mg daily PO 6. Diabetes Mellitus, type 2 - Continue januvia 50mg PO QD -Continue glipizide 5mg PO QD - Med dose insulin coverage scale and hypoglycemia protocol 7. Hypothyroidism - Continue levothyroxine 112 mcg QD 8. Insomnia -Continue Ambien 5mg PO HS 9. Diet - Consistent carb/heart healthy 10. DVT prophylaxis - Lovenox 40mg SC QD
--- NOTE | 2018-03-30 12:06 | CP.PCM.DIS ---
<Jah Fried - Last Filed: 03/30/18 12:08> Provider - Provider Date of Admission: 03/28/18 18:56 Attending physician: Stanley Hagan MD Consults: 03/29/18 00:10 Case Management Referral Routine Comment: Physician Instructions: Reason For Exam: Reason for Referral: OLI Williamson 03/29/18 14:18 Infectious Disease Consult Routine Comment: Consulting Provider: April Morrison Consulting Physician: April Morrison Reason for Consult: COPD r/o pneumonia Time Spent in preparation of Discharge (in minutes): 30 Diagnosis - Discharge Diagnosis (1) Cough Status: Acute (2) COPD exacerbation Status: Acute Hospital Course - Lab Results Lab Results: Micro Results 03/28/18 23:30 Urine,Clean Catch Urine Culture - Final No Growth (<1,000 CFU/ML) 03/28/18 20:30 Blood-Venous Blood Culture - Preliminary NO GROWTH AFTER 24 HOURS 03/28/18 20:30 Blood-Venous Blood Culture - Preliminary NO GROWTH AFTER 24 HOURS Most Recent Lab Values WBC 20.0 K/uL (4.8-10.8) H D 03/30/18 04:30 RBC 3.81 Mil/uL (3.80-5.20) 03/30/18 04:30 Hgb 11.3 g/dL (12.0-16.0) L 03/30/18 04:30 Hct 34.2 % (34.0-47.0) 03/30/18 04:30 MCV 89.9 fl (81.0-99.0) D 03/30/18 04:30 MCH 29.8 pg (27.0-31.0) 03/30/18 04:30 MCHC 33.1 g/dL (33.0-37.0) 03/30/18 04:30 RDW 15.2 % (11.5-14.5) H 03/30/18 04:30 Plt Count 271 K/uL (130-400) 03/30/18 04:30 MPV 12.2 fl (7.2-11.7) H 03/30/18 04:30 Neut % (Auto) 87.6 % (50.0-75.0) H 03/30/18 04:30 Lymph % (Auto) 6.9 % (20.0-40.0) L 03/30/18 04:30 [place] % (Auto) 4.8 % (0.0-10.0) 03/30/18 04:30 Eos % (Auto) 0.1 % (0.0-4.0) 03/30/18 04:30 Baso % (Auto) 0.6 % (0.0-2.0) 03/30/18 04:30 Neut # (Auto) 17.5 K/uL (1.8-7.0) H 03/30/18 04:30 Lymph # (Auto) 1.4 K/uL (1.0-4.3) 03/30/18 04:30 [place] # (Auto) 1.0 K/uL (0.0-0.8) H 03/30/18 04:30 Eos # (Auto) 0.0 K/uL (0.0-0.7) 03/30/18 04:30 Baso # (Auto) 0.1 K/uL (0.0-0.2) 03/30/18 04:30 Neutrophils % (Manual) 94 % (42-75) H 03/29/18 04:20 Band Neutrophils % 1 % (0-2) 03/29/18 04:20 Lymphocytes % (Manual) 3 % (20-50) L 03/29/18 04:20 Reactive Lymphs % 1 % (0-0) H 03/29/18 04:20 Monocytes % (Manual) 1 % (0-10) 03/29/18 04:20 Platelet Estimate Normal (NORMAL) 03/29/18 04:20 Anisocytosis (manual) Slight 03/29/18 04:20 pCO2 28 mm/Hg (35-45) L 03/29/18 12:55 pO2 93 mm/Hg (80-100) 03/29/18 12:55 HCO3 21.9 mmol/L (21-28) 03/29/18 12:55 ABG pH 7.44 (7.35-7.45) 03/29/18 12:55 ABG Total CO2 19.9 mmol/L (22-28) L 03/29/18 12:55 ABG O2 Saturation 99.2 % (95-98) H 03/29/18 12:55 ABG Base Excess -3.9 mmol/L (-2.0-3.0) L 03/29/18 12:55 Nathaniel Test Yes 03/29/18 12:55 ABG Potassium 4.2 mmol/L (3.6-5.2) 03/29/18 12:55 VBG pH 7.15 (7.32-7.43) L* 03/28/18 20:41 VBG pCO2 52 mmHg (40-60) 03/28/18 20:41 VBG HCO3 16.2 mmol/L 03/28/18 20:41 VBG Total CO2 19.7 mmol/L (22-28) L 03/28/18 20:41 VBG O2 Sat (Calc) 95.4 % (40-65) H 03/28/18 20:41 VBG Base Excess -10.9 mmol/L (0.0-2.0) L 03/28/18 20:41 A-a O2 Difference 22.0 mm/Hg 03/29/18 12:55 Sodium 133.0 mmol/L (132-148) 03/29/18 12:55 Chloride 101.0 mmol/L (98-107) 03/29/18 12:55 Glucose 383 mg/dL (65-105) H 03/29/18 12:55 Lactate 5.3 mmol/L (0.7-2.1) H* 03/29/18 12:55 FiO2 21.0 % 03/29/18 12:55 Blood Gas Comments Ra 21 03/29/18 12:55 Crit Value Called To Dr. ulises hagan m.d. 03/29/18 12:55 Crit Value Called By Myesha 03/29/18 12:55 Crit Value Read Back Y 03/29/18 12:55 Blood Gas Notified Time 1315 03/29/18 12:55 Sodium 133 mmol/l (132-148) 03/30/18 04:30 Potassium 5.0 MMOL/L (3.6-5.0) 03/30/18 04:30 Chloride 96 mmol/L (98-107) L 03/30/18 04:30 Carbon Dioxide 20 mmol/L (22-30) L 03/30/18 04:30 Anion Gap 22 (10-20) H 03/30/18 04:30 BUN 34 mg/dl (7-17) H 03/30/18 04:30 Creatinine 1.1 mg/dl (0.7-1.2) 03/30/18 04:30 Est GFR ( Amer) 58 03/30/18 04:30 Est GFR (Non-Af Amer) 48 03/30/18 04:30 POC Glucose (mg/dL) 308 mg/dL (65-110) H 03/30/18 11:08 Random Glucose 296 mg/dL (65-105) H 03/30/18 04:30 Lactic Acid 4.3 mmol/L (0.7-2.1) H* 03/30/18 07:51 Calcium 9.0 mg/dL (8.4-10.2) 03/30/18 04:30 Total Bilirubin 0.3 mg/dl (0.2-1.3) 03/28/18 16:00 AST 18 U/L (14-36) 03/28/18 16:00 ALT 30 U/L (9-52) 03/28/18 16:00 Alkaline Phosphatase 123 U/L (38-126) 03/28/18 16:00 Troponin I < 0.0120 ng/mL (0.00-0.120) 03/28/18 20:30 NT-Pro-B Natriuret Pep 162 pg/ml (0-900) 03/28/18 20:30 Total Protein 7.3 G/DL (6.3-8.2) 03/28/18 16:00 Albumin 4.0 g/dL (3.5-5.0) 03/28/18 16:00 Globulin 3.3 gm/dL (2.2-3.9) 03/28/18 16:00 Albumin/Globulin Ratio 1.2 (1.0-2.1) 03/28/18 16:00 Arterial Blood Potassium 4.2 mmol/L (3.6-5.2) 03/29/18 12:55 Urine Color Straw (YELLOW) 03/28/18 23:30 Urine Clarity Clear (Clear) 03/28/18 23:30 Urine pH 7.0 (5.0-8.0) 03/28/18 23:30 Ur Specific [place] 1.010 (1.003-1.030) 03/28/18 23:30 Urine Protein Negative mg/dL (NEGATIVE) 03/28/18 23:30 Urine Glucose (UA) Neg mg/dL (NEGATIVE) 03/28/18 23:30 Urine Ketones Negative mg/dL (NEGATIVE) 03/28/18 23:30 Urine Blood Negative (NEGATIVE) 03/28/18 23:30 Urine Nitrate Negative (NEGATIVE) 03/28/18 23:30 Urine Bilirubin Negative (NEGATIVE) 03/28/18 23:30 Urine Urobilinogen 0.2-1.0 mg/dL (0.2-1.0) 03/28/18 23:30 Ur Leukocyte Esterase Large Rosita/uL (Negative) 03/28/18 23:30 Urine RBC (Auto) < 1 /hpf (0-3) 03/28/18 23:30 Urine Microscopic WBC 1 /hpf (0-5) 03/28/18 23:30 Ur Squamous Epith Cells 2 /hpf (0-5) 03/28/18 23:30 Urine Bacteria Rare (<OCC) 03/28/18 23:30 Hyaline Casts 0-2 /hpf (0-2) 03/28/18 23:30 Influenza Typ A,B (EIA) Negative for flu a/b (NEGATIVE) 03/28/18 16:00 Ur L.pneumophila Ag Negative (NEGATIVE) 03/28/18 21:09 Mycoplasma pneumon IgM Negative (NEGATIVE) 03/29/18 13:30 - Hospital Course Hospital Course: 77 yo female with history of COPD, DM2, HTN, asthma, hypothyroidism and Breast Cancer (left lumpectomy plus radiation therapy 2017), admitted for further evaluation of clinical pneumonia. 1. Cough likely secondary to CAP(clinical diagnosis) - On admission P-122, WBC- 18.8 with lactate of 5.3. Lactate trended down to 4.3. Possibly secondary to dehydration - White count had trended down to 12 however elevated back up to 20. With a left shift . Most likely reactive secondary to steroids -CXR negative for acute disease. -Influenza negative. -Continue azithromycin 500mg PO QD x 5 more days - Prednisone 20 mg x 3 more days 2. COPD/asthma -Continue Prednisone 20 mg x 3 more days -Continue with home meds -Fluticasone/Salmeterol 1 puff IH Q12 - F/U with PMD and Dr. Cueva 3) hx of breast CA -c/w Anastrozole 1mg PO QD 5. HTN - Continue losartan 100 mg PO -Continue Hctz 25mg daily PO 6. Diabetes Mellitus, type 2 - Continue januvia 50mg PO QD -Continue glipizide 5mg PO QD 7. Hypothyroidism - Continue levothyroxine 112 mcg QD 8. Insomnia -Continue Ambien 5mg PO HS Discharge Exam - Head Exam Head Exam: ATRAUMATIC - Eye Exam Eye Exam: Normal appearance - ENT Exam ENT Exam: Mucous Membranes Moist - Respiratory Exam Respiratory Exam: Decreased Breath Sounds, NORMAL BREATHING PATTERN. absent: Wheezes, Respiratory Distress - Cardiovascular Exam Cardiovascular Exam: +S1, +S2 - GI/Abdominal Exam GI & Abdominal Exam: Normal Bowel Sounds, Soft. absent: Tenderness - Neurological Exam Neurological exam: Alert, CN II-XII Intact, Oriented x3 - Skin Skin Exam: Normal Color, Warm Discharge Plan - Discharge Medications Prescriptions: RX: Azithromycin 500 mg PO DAILY 5 Days #7 tablet predniSONE [Prednisone] 20 mg PO DAILY 3 Days #3 tab - Follow Up Plan Condition: STABLE Disposition: HOME/ ROUTINE Instructions: Pneumonia, Adult (DC), Exacerbation of COPD (DC) Additional Instructions: follow up appt with on sunday04/02/18 at 10:45pm F/U with Dr. Cueva Referrals: Bryan Cueva MD [Staff Provider] - Bishop Hui MD [Family Provider] - <Stanley Hagan - Last Filed: 03/30/18 13:28> Provider - Provider Date of Admission: 03/28/18 18:56 Attending physician: Stanley Hagan MD Consults: 03/29/18 00:10 Case Management Referral Routine Comment: Physician Instructions: Reason For Exam: Reason for Referral: [facility] Eval 03/29/18 14:18 Infectious Disease Consult Routine Comment: Consulting Provider: April Morrison Consulting Physician: April Morrison Reason for Consult: COPD r/o pneumonia Hospital Course - Lab Results Lab Results: Micro Results 03/28/18 23:30 Urine,Clean Catch Urine Culture - Final No Growth (<1,000 CFU/ML) 03/28/18 20:30 Blood-Venous Blood Culture - Preliminary NO GROWTH AFTER 24 HOURS 03/28/18 20:30 Blood-Venous Blood Culture - Preliminary NO GROWTH AFTER 24 HOURS Most Recent Lab Values WBC 20.0 K/uL (4.8-10.8) H D 03/30/18 04:30 RBC 3.81 Mil/uL (3.80-5.20) 03/30/18 04:30 Hgb 11.3 g/dL (12.0-16.0) L 03/30/18 04:30 Hct 34.2 % (34.0-47.0) 03/30/18 04:30 MCV 89.9 fl (81.0-99.0) D 03/30/18 04:30 MCH 29.8 pg (27.0-31.0) 03/30/18 04:30 MCHC 33.1 g/dL (33.0-37.0) 03/30/18 04:30 RDW 15.2 % (11.5-14.5) H 03/30/18 04:30 Plt Count 271 K/uL (130-400) 03/30/18 04:30 MPV 12.2 fl (7.2-11.7) H 03/30/18 04:30 Neut % (Auto) 87.6 % (50.0-75.0) H 03/30/18 04:30 Lymph % (Auto) 6.9 % (20.0-40.0) L 03/30/18 04:30 [place] % (Auto) 4.8 % (0.0-10.0) 03/30/18 04:30 Eos % (Auto) 0.1 % (0.0-4.0) 03/30/18 04:30 Baso % (Auto) 0.6 % (0.0-2.0) 03/30/18 04:30 Neut # (Auto) 17.5 K/uL (1.8-7.0) H 03/30/18 04:30 Lymph # (Auto) 1.4 K/uL (1.0-4.3) 03/30/18 04:30 [place] # (Auto) 1.0 K/uL (0.0-0.8) H 03/30/18 04:30 Eos # (Auto) 0.0 K/uL (0.0-0.7) 03/30/18 04:30 Baso # (Auto) 0.1 K/uL (0.0-0.2) 03/30/18 04:30 Neutrophils % (Manual) 94 % (42-75) H 03/29/18 04:20 Band Neutrophils % 1 % (0-2) 03/29/18 04:20 Lymphocytes % (Manual) 3 % (20-50) L 03/29/18 04:20 Reactive Lymphs % 1 % (0-0) H 03/29/18 04:20 Monocytes % (Manual) 1 % (0-10) 03/29/18 04:20 Platelet Estimate Normal (NORMAL) 03/29/18 04:20 Anisocytosis (manual) Slight 03/29/18 04:20 pCO2 28 mm/Hg (35-45) L 03/29/18 12:55 pO2 93 mm/Hg (80-100) 03/29/18 12:55 HCO3 21.9 mmol/L (21-28) 03/29/18 12:55 ABG pH 7.44 (7.35-7.45) 03/29/18 12:55 ABG Total CO2 19.9 mmol/L (22-28) L 03/29/18 12:55 ABG O2 Saturation 99.2 % (95-98) H 03/29/18 12:55 ABG Base Excess -3.9 mmol/L (-2.0-3.0) L 03/29/18 12:55 Nathaniel Test Yes 03/29/18 12:55 ABG Potassium 4.2 mmol/L (3.6-5.2) 03/29/18 12:55 VBG pH 7.15 (7.32-7.43) L* 03/28/18 20:41 VBG pCO2 52 mmHg (40-60) 03/28/18 20:41 VBG HCO3 16.2 mmol/L 03/28/18 20:41 VBG Total CO2 19.7 mmol/L (22-28) L 03/28/18 20:41 VBG O2 Sat (Calc) 95.4 % (40-65) H 03/28/18 20:41 VBG Base Excess -10.9 mmol/L (0.0-2.0) L 03/28/18 20:41 A-a O2 Difference 22.0 mm/Hg 03/29/18 12:55 Sodium 133.0 mmol/L (132-148) 03/29/18 12:55 Chloride 101.0 mmol/L (98-107) 03/29/18 12:55 Glucose 383 mg/dL (65-105) H 03/29/18 12:55 Lactate 5.3 mmol/L (0.7-2.1) H* 03/29/18 12:55 FiO2 21.0 % 03/29/18 12:55 Blood Gas Comments Ra 21 03/29/18 12:55 Crit Value Called To Dr. ulises hagan m.d. 03/29/18 12:55 Crit Value Called By Myesha 03/29/18 12:55 Crit Value Read Back Y 03/29/18 12:55 Blood Gas Notified Time 1315 03/29/18 12:55 Sodium 133 mmol/l (132-148) 03/30/18 04:30 Potassium 5.0 MMOL/L (3.6-5.0) 03/30/18 04:30 Chloride 96 mmol/L (98-107) L 03/30/18 04:30 Carbon Dioxide 20 mmol/L (22-30) L 03/30/18 04:30 Anion Gap 22 (10-20) H 03/30/18 04:30 BUN 34 mg/dl (7-17) H 03/30/18 04:30 Creatinine 1.1 mg/dl (0.7-1.2) 03/30/18 04:30 Est GFR ( Amer) 58 03/30/18 04:30 Est GFR (Non-Af Amer) 48 03/30/18 04:30 POC Glucose (mg/dL) 308 mg/dL (65-110) H 03/30/18 11:08 Random Glucose 296 mg/dL (65-105) H 03/30/18 04:30 Lactic Acid 4.3 mmol/L (0.7-2.1) H* 03/30/18 07:51 Calcium 9.0 mg/dL (8.4-10.2) 03/30/18 04:30 Total Bilirubin 0.3 mg/dl (0.2-1.3) 03/28/18 16:00 AST 18 U/L (14-36) 03/28/18 16:00 ALT 30 U/L (9-52) 03/28/18 16:00 Alkaline Phosphatase 123 U/L (38-126) 03/28/18 16:00 Troponin I < 0.0120 ng/mL (0.00-0.120) 03/28/18 20:30 NT-Pro-B Natriuret Pep 162 pg/ml (0-900) 03/28/18 20:30 Total Protein 7.3 G/DL (6.3-8.2) 03/28/18 16:00 Albumin 4.0 g/dL (3.5-5.0) 03/28/18 16:00 Globulin 3.3 gm/dL (2.2-3.9) 03/28/18 16:00 Albumin/Globulin Ratio 1.2 (1.0-2.1) 03/28/18 16:00 Arterial Blood Potassium 4.2 mmol/L (3.6-5.2) 03/29/18 12:55 Urine Color Straw (YELLOW) 03/28/18 23:30 Urine Clarity Clear (Clear) 03/28/18 23:30 Urine pH 7.0 (5.0-8.0) 03/28/18 23:30 Ur Specific [place] 1.010 (1.003-1.030) 03/28/18 23:30 Urine Protein Negative mg/dL (NEGATIVE) 03/28/18 23:30 Urine Glucose (UA) Neg mg/dL (NEGATIVE) 03/28/18 23:30 Urine Ketones Negative mg/dL (NEGATIVE) 03/28/18 23:30 Urine Blood Negative (NEGATIVE) 03/28/18 23:30 Urine Nitrate Negative (NEGATIVE) 03/28/18 23:30 Urine Bilirubin Negative (NEGATIVE) 03/28/18 23:30 Urine Urobilinogen 0.2-1.0 mg/dL (0.2-1.0) 03/28/18 23:30 Ur Leukocyte Esterase Large Rosita/uL (Negative) 03/28/18 23:30 Urine RBC (Auto) < 1 /hpf (0-3) 03/28/18 23:30 Urine Microscopic WBC 1 /hpf (0-5) 03/28/18 23:30 Ur Squamous Epith Cells 2 /hpf (0-5) 03/28/18 23:30 Urine Bacteria Rare (<OCC) 03/28/18 23:30 Hyaline Casts 0-2 /hpf (0-2) 03/28/18 23:30 Influenza Typ A,B (EIA) Negative for flu a/b (NEGATIVE) 03/28/18 16:00 Ur L.pneumophila Ag Negative (NEGATIVE) 03/28/18 21:09 Mycoplasma pneumon IgM Negative (NEGATIVE) 03/29/18 13:30 Attending/Attestation - Attestation I have personally seen and examined this patient.: Yes I have fully participated in the care of the patient.: Yes I have reviewed all pertinent clinical information, including history, physical exam and plan: Yes Notes (Text): 03/30/18 13:19 Patient seen and examined with resident. Case discussed and agreed with assessment and plan. Patient is a hard stick so continuation of IV infusion of antibiotics became impossible. Patient requested that she be discharged since she was feeling much, much better. Breathing notably much easier and there was no wheezing although rhonchi on left lower region remained. Her WBC remained elevated secondary to steroid. Her lactate also remained high but patient was not acidotic and vital signs were stable. Patient will follow up with Dr Hui, PCP, and Dr Cueva. We advised her liberal intake of fluid and to continue Zithromax for 5 days.
[2018-03-30 12:41] VITALS: BP 171/72; PULSE 85; TEMP 97.9; O2SAT 99
[2018-03-31] MEDS ORDERED: MethylPREDNISolone 40 mg Vial IVP SCH (09:00)
== END 2018-03-30 13:21 | disposition home or self-care (01) | DRG 871 ==
LOC: H.ER 13:29 → OBSVTOIN 18:56 → H.ERHOLD 18:56 → H.TEL 22:05
PROC: 3E0F7GC Introduction of Other Therapeutic Substance into Respiratory Tract, Via Natural or Artificial Opening (ICD-10-PCS; principal; 2018-03-28)
DX: A41.9 Sepsis, unspecified organism (principal); J18.9 Pneumonia, unspecified organism; J44.0 Chronic obstructive pulmonary disease with (acute) lower respiratory infection; J44.1 Chronic obstructive pulmonary disease with (acute) exacerbation; E03.9 Hypothyroidism, unspecified; Z85.3 Personal history of malignant neoplasm of breast; E11.9 Type 2 diabetes mellitus without complications; E78.00 Pure hypercholesterolemia, unspecified; G47.00 Insomnia, unspecified; I10 Essential (primary) hypertension; I25.2 Old myocardial infarction; K21.9 Gastro-esophageal reflux disease without esophagitis; T38.0X5A Adverse effect of glucocorticoids and synthetic analogues, initial encounter; Z79.84 Long term (current) use of oral hypoglycemic drugs; Z90.49 Acquired absence of other specified parts of digestive tract; Z90.710 Acquired absence of both cervix and uterus; Z92.3 Personal history of irradiation; Z97.0 Presence of artificial eye; H26.9 Unspecified cataract; M19.90 Unspecified osteoarthritis, unspecified site; E86.0 Dehydration